=== PATIENT | male | born 1955 | race American Indian/Alaskan Native ===

== ENCOUNTER 2016-11-10 08:45 | Emergency (ER) | payer OTHER ==
[2016-11-10] MEDS ORDERED: KETOROLAC 60 MG/2 ML VIAL IVP STA (09:05)
[2016-11-10] MEDS ORDERED: DEXAMETHASONE 10 MG/ML VIAL IVP STA (09:05)
--- NOTE | 2016-11-10 09:10 | ED Physician Documentation ---
PD HPI DYSPNEA - Stated complaint Stated Complaint: SOA - Chief complaint Chief Complaint: Critical Care - History obtained from History obtained from: Patient, Family - History of Present Illness Timing - onset: Yesterday (afternoon) Timing - onset during: Rest Timing - duration: Days (1) Timing - details: Gradual onset, Still present Inciting event(s): URI Improved by: Rest Worsened by: Exertion, Coughing, Other (inspiration) Associated symptoms: Cough, Chest pain / discomfort Similar symptoms before: Has not had sx before Recently seen: Not recently seen - Additional information Additional information: 61-year-old previously healthy male has been working at [employer] 7 days a week 10 hours a day for the past 6 years. He last had 2 days in a row off 2 years ago. Yesterday afternoon after work he developed a cough and pain in the left side of his chest. He has developed some dyspnea overnight and has been extremely uncomfortable. He is not able to take a deep breath or move particularly well. Review of Systems Constitutional: reports: Myalgias, Fatigue. denies: Fever Eyes: denies: Decreased vision Ears: denies: Ear pain Nose: reports: Congestion. denies: Rhinorrhea / runny nose Throat: denies: Sore throat Cardiac: reports: Chest pain / pressure. denies: Palpitations Respiratory: reports: Dyspnea, Cough GI: reports: Nausea, Vomiting. denies: Abdominal Pain : denies: Dysuria, Frequency Skin: denies: Rash Musculoskeletal: reports: Back pain. denies: Neck pain Neurologic: reports: Generalized weakness. denies: Focal weakness, Numbness PD PAST MEDICAL HISTORY - Present Medications Home Medications: Ambulatory Orders Medication Instructions Recorded Confirmed Levofloxacin [Levaquin] 750 mg PO DAILY #10 tablet 11/10/16 traMADol [Ultram] 50 - 100 mg PO ONCE PRN #20 tablet 11/10/16 - Allergies Allergies/Adverse Reactions: Allergies Allergy/AdvReac Type Severity Reaction Status Date / Time No Known Drug Allergies Allergy Verified 11/10/16 08:55 PD ED PE NORMAL - Vitals Vital signs reviewed: Yes (Tachycardic tachypneic and hypertensive) - General General: Well developed/nourished, Other (61 y/o male staning at the bedside winching each time he breaths with his head tilted down as this is more comfortable. ) - HEENT HEENT: Atraumatic, PERRL, EOMI, Ears normal, Pharynx benign, Other (dry mucous membranes) - Neck Neck: Supple, no meningeal sign, No bony TTP - Cardiac Cardiac: No murmur, Other (tachy ) - Respiratory Respiratory: Other (tachypneic with diminished breath sounds in the right base. ) - Abdomen Abdomen: Soft, Non tender - Back Back: No CVA TTP, No spinal TTP - Derm Derm: Normal color, Warm and dry, No rash - Extremities Extremities: No deformity, No edema - Neuro Neuro: No motor deficit, No sensory deficit - Psych Psych: Normal mood, Normal affect Results - Vitals Vitals: Vital Signs - 24 hr 11/10/16 11/10/16 11/10/16 08:52 09:56 11:47 Temperature 37.3 C Heart Rate 105 H 87 81 Respiratory 25 H 15 Rate Blood Pressure 148/90 H 119/68 107/74 O2 Saturation 95 96 98 Oxygen O2 Source Room air - Labs Labs: Laboratory Tests 11/10/16 11/10/16 11/10/16 09:00 09:00 09:00 WBC 8.9 RBC 4.13 L Hgb 15.3 Hct 43.1 MCV 104.4 H MCH 36.9 H MCHC 35.4 RDW 14.0 Plt Count 73 L MPV 8.8 Neut # 7.8 H Lymph # 0.7 L [place] # 0.4 Eos # 0.0 Baso # 0.0 Absolute Nucleated RBC 0.00 Nucleated RBCs 0.0 Sodium 129 L Potassium 3.8 Chloride 94 L Carbon Dioxide 24 Anion Gap 11.0 BUN 15 Creatinine 1.0 Estimated GFR (MDRD) 75 L Glucose 173 H Calcium 8.9 Total Bilirubin 2.5 H AST 194 H ALT 186 H Alkaline Phosphatase 81 Troponin I < 0.04 Total Protein 8.2 Albumin 3.8 Globulin 4.4 H Albumin/Globulin Ratio 0.9 L Lipase 23 PD MEDICAL DECISION MAKING - ED course Complexity details: reviewed results, re-evaluated patient, considered differential, d/w patient, d/w family ED course: 61-year-old male with essentially no past medical history has developed a cough and left sided chest pain with inspiration. He has significant pain and looks quite uncomfortable. An IV is begun he is given dexamethasone and Toradol. Chest x-ray is obtained. The chest x-ray demonstrates a discrete left lower lobe infiltrate and the patient has relief of his pain with use of the IV Toradol and dexamethasone. On his blood work his liver functions are elevated and he does have a past history of hepatitis C and apparently took medication cured this and continues to drink about 4 beers per day. His picture is consistent with some cholestasis with a elevation of his bilirubin therefore we will use Levaquin instead of Zithromax as this is contraindicated with cholestasis. Departure - Departure Disposition: 01 Home, Self Care Clinical Impression: Elevated liver function tests Pneumonia Qualifiers: Pneumonia type: due to unspecified organism Laterality: left Lung location: lower lobe of lung Qualified Code(s): J18.1 - Lobar pneumonia, unspecified organism Condition: Stable Instructions: ED Pneumonia Adult Follow-Up: Jigar Hernandes MD [Primary Care Provider] - Prescriptions: Levofloxacin [Levaquin] 750 mg PO DAILY #10 tablet traMADol [Ultram] 50 - 100 mg PO ONCE PRN #20 tablet PRN Reason: Pain Comments: Today it appears you have a left lower lobe pneumonia on her chest x-ray. In addition you do have elevation of your liver function test and we are recommending you discontinue the use of alcohol and not use acetaminophen now.Follow-up with Dr. Hernandes regarding retesting your liver functions after you have stopped drinking. Forms: Activity restrictions
[2016-11-10] MEDS ORDERED: KETOROLAC 30 MG/ML VIAL ONE (09:14)
[2016-11-10] MEDS ORDERED: DEXAMETHASONE 10 MG/ML VIAL ONE (09:14)
[2016-11-10 09:33] LABS: BASOPHILS % (AUTO) 0.2 %; HCT - HEMATOCRIT 43.1 % (42.0-52.0); HGB - HEMOGLOBIN 15.3 g/dL (14.0-18.0); LYMPHOCYTES # (AUTO) 0.7 10^3/uL (1.5-3.5); LYMPHOCYTES % (AUTO) 7.8 %; MEAN CORPUSCULAR HEMOGLOBIN 36.9 pg (27.0-31.0); MEAN CORPUSCULAR HGB CONC 35.4 g/dL (32.0-36.0); MEAN CORPUSCULAR VOLUME 104.4 fL (80.0-94.0); MEAN PLATELET VOLUME 8.8 fL (7.4-11.4); MONOCYTES # (AUTO) 0.4 10^3/uL (0.0-1.0); NEUTROPHILS # (AUTO) 7.8 10^3/uL (1.5-6.6); RED BLOOD COUNT 4.13 10^6/uL (4.70-6.10); UNCORRECTED WHITE BLOOD COUNT 8.9 x10^3/uL; WHITE BLOOD COUNT 8.9 x10^3/uL (4.8-10.8)
[2016-11-10 09:47] LABS: ALBUMIN/GLOBULIN RATIO 0.9 (1.0-2.2); BILIRUBIN,TOTAL 2.5 mg/dL (0.2-1.0); CALCIUM 8.9 mg/dL (8.5-10.3); POTASSIUM 3.8 mmol/L (3.5-5.0); TOTAL PROTEIN 8.2 g/dL (6.7-8.2)
[2016-11-10] MEDS ORDERED: cefTRIAXone 1 GM in SODIUM CHLORIDE 0.9% MINIBAG 100 ML IV STA (10:15)
[2016-11-10] MEDS ORDERED: cefTRIAXone 1 GM VIAL ONE (10:25)
--- NOTE | 2016-11-10 10:49 | XRAY Report ---
EXAM: CHEST RADIOGRAPHY EXAM DATE: 11/10/2016 09:09 AM. CLINICAL HISTORY: Cough and left-sided chest pain. COMPARISON: None. TECHNIQUE: 2 views. FINDINGS: Lungs/Pleura: Left lower lobe pulmonary infiltrate and consolidation. Left upper chest and right ches t appear clear. Mediastinum: Heart and mediastinal contours are unremarkable. Other: None. IMPRESSION: Left lower lobe pneumonia. [facility] Referring Provider Line: [phone] SITE ID: [id number]
[2016-11-10] MEDS ORDERED: traMADol 50 MG TABLET PO STA (12:35)
[2016-11-10] MEDS ORDERED: traMADol 50 MG TABLET PO ONE (12:42)
[2016-11-10 12:50] VITALS: BP 104/68
== END 2016-11-10 12:49 | disposition home or self-care (01) ==
LOC: ED 08:45
DX: R79.89 Other specified abnormal findings of blood chemistry (principal); J18.9 Pneumonia, unspecified organism; Z86.19 Personal history of other infectious and parasitic diseases; Z72.89 Other problems related to lifestyle
CPT/HCPCS: 36415; 71020; 80053; 83690; 84484; 85025; 87040; 96365; 96375; 99284; A9270

== ENCOUNTER 2016-11-15 23:42 | Inpatient (IN) | payer OTHER ==
[2016-11-16] MEDS ORDERED: SODIUM CHLORIDE 0.9% 1,000 ML IV ONE ×2 (00:45→23:12)
[2016-11-16] MEDS ORDERED: KETOROLAC 60 MG/2 ML VIAL IVP STA (00:45)
[2016-11-16] MEDS ORDERED: IPRATROPIUM/ALBUTEROL 3 ML NEB INH STA (00:45)
[2016-11-16 01:06] LABS: BASOPHILS # (AUTO) 0.1 10^3/uL (0.0-0.1); EOSINOPHILS % (AUTO) 0.3 %; HCT - HEMATOCRIT 44.7 % (42.0-52.0); HGB - HEMOGLOBIN 15.6 g/dL (14.0-18.0); LYMPHOCYTES # (AUTO) 0.9 10^3/uL (1.5-3.5); LYMPHOCYTES % (AUTO) 9.9 %; MEAN CORPUSCULAR HEMOGLOBIN 36.4 pg (27.0-31.0); MEAN CORPUSCULAR HGB CONC 34.9 g/dL (32.0-36.0); MEAN CORPUSCULAR VOLUME 104.3 fL (80.0-94.0); MEAN PLATELET VOLUME 7.9 fL (7.4-11.4); MONOCYTES # (AUTO) 1.2 10^3/uL (0.0-1.0); MONOCYTES % (AUTO) 12.9 %; NEUTROPHILS # (AUTO) 7.2 10^3/uL (1.5-6.6); NEUTROPHILS % (AUTO) 75.9 %; RED BLOOD COUNT 4.29 10^6/uL (4.70-6.10); RED CELL DISTRIBUTION WIDTH 13.9 % (12.0-15.0); UNCORRECTED WHITE BLOOD COUNT 9.5 x10^3/uL; WHITE BLOOD COUNT 9.5 x10^3/uL (4.8-10.8)
[2016-11-16] MEDS ORDERED: KETOROLAC 30 MG/ML VIAL ONE (01:07)
--- NOTE | 2016-11-16 01:07 | XRAY Preliminary Report ---
Exam: XR Chest 2 View PA/LAT IMPRESSION: Improving left lower lobe pneumonia with increasing small left pleural effusion. Rounded left perihilar well circumscribed density appears posteriorly on the lateral view and may be some loc ulated fluid within the pleural space versus partial lobar collapse. Posttreatment follow-up suggeste d to ensure clearance. [facility] SITE ID: [id number]
--- NOTE | 2016-11-16 01:10 | XRAY Report ---
EXAM: CHEST RADIOGRAPHY EXAM DATE: 11/16/2016 12:45 AM. CLINICAL HISTORY: Short of breath COMPARISON: 11/10/2016. TECHNIQUE: 2 views. FINDINGS: Lungs/Pleura: Improving left lower lobe pneumonia with increasing small left pleural effusion. Rounde d left perihilar well circumscribed density appears posteriorly on the lateral view and may be some l oculated fluid within the pleural space versus partial lobar collapse. Suspect trace right pleural ef fusion. No gross pneumothorax. Mediastinum: Heart size remains normal. No mediastinal shift. Other: None. IMPRESSION: Improving left lower lobe pneumonia with increasing small left pleural effusion. Rounded left perihilar well circumscribed density appears posteriorly on the lateral view and may be some loc ulated fluid within the pleural space versus partial lobar collapse. Posttreatment follow-up suggeste d to ensure clearance. [facility] Referring Provider Line: [phone] SITE ID: [id number]
[2016-11-16] MEDS ORDERED: IPRATROPIUM/ALBUTEROL 3 ML NEB INH ONE (01:16)
[2016-11-16 01:19] LABS: ALBUMIN/GLOBULIN RATIO 0.7 (1.0-2.2); BILIRUBIN,TOTAL 3.9 mg/dL (0.2-1.0); CALCIUM 8.5 mg/dL (8.5-10.3); CREATININE 0.9 mg/dL (0.6-1.2); POTASSIUM 3.6 mmol/L (3.5-5.0); TOTAL PROTEIN 7.8 g/dL (6.7-8.2)
[2016-11-16] MEDS ORDERED: PROCHLORPERAZINE 10 MG/2 ML VIAL IVP PRN (01:41)
[2016-11-16] MEDS ORDERED: ACETAMINOPHEN 325 MG TABLET PO PRN (01:41)
[2016-11-16] MEDS ORDERED: ONDANSETRON 4 MG/2 ML VIAL IVP PRN (01:41)
[2016-11-16] MEDS ORDERED: ZOLPIDEM 5 MG TABLET PO PRN (01:41)
[2016-11-16] MEDS ORDERED: IPRATROPIUM/ALBUTEROL 3 ML NEB INH PRN (01:41)
[2016-11-16] MEDS ORDERED: VANCOMYCIN PER PHARMACY 0.1 GM in SODIUM CHLORIDE 0.9% 250 ML IV SCH (02:00)
--- NOTE | 2016-11-16 02:03 | ED Physician Documentation ---
PD HPI DYSPNEA - Stated complaint Stated Complaint: SOA - Chief complaint Chief Complaint: Resp - History obtained from History obtained from: Patient, Family - History of Present Illness Timing - onset: How many weeks ago (1) Timing - onset during: Rest Timing - duration: Weeks (1) Timing - details: Gradual onset, Still present Inciting event(s): URI Improved by: Rest Worsened by: Exertion, Coughing Associated symptoms: Cough, Chest pain / discomfort Similar symptoms before: Diagnosis (pneumonia) Recently seen: Emergency Dept (6 days ago) - Additional information Additional information: 61-year-old male was seen in the emergency department 6 days ago with acute left sided chest pain cough and dyspnea. He had a discrete infiltrate on his chest x-ray and was administered Rocephin IM, decadron and placed on a course of azithromycin. He did not have improvement in his symptoms and today has worse chest pain and pain with inspiration. Review of Systems Constitutional: reports: Myalgias, Fatigue, Weight Loss, Sweats. denies: Fever Eyes: denies: Decreased vision Ears: denies: Ear pain Nose: denies: Congestion Throat: denies: Sore throat Cardiac: reports: Chest pain / pressure. denies: Palpitations Respiratory: reports: Dyspnea, Cough GI: denies: Abdominal Pain, Nausea, Vomiting : denies: Dysuria, Frequency PD PAST MEDICAL HISTORY - Past Medical History Past Medical History: Yes Respiratory: Pneumonia - Past Surgical History Past Surgical History: Yes - Present Medications Home Medications: Ambulatory Orders Medication Instructions Recorded Confirmed Levofloxacin [Levaquin] 750 mg PO DAILY #10 tablet 11/10/16 traMADol [Ultram] 50 - 100 mg PO ONCE PRN #20 tablet 11/10/16 - Allergies Allergies/Adverse Reactions: Allergies Allergy/AdvReac Type Severity Reaction Status Date / Time No Known Drug Allergies Allergy Verified 11/10/16 08:55 - Social History Does the pt smoke?: No Smoking Status: Never smoker Does the pt drink ETOH?: Yes Does the pt have substance abuse?: No - Immunizations Immunizations: TDAP >10years/unknown - POLST Patient has POLST: No PD ED PE NORMAL - Vitals Vital signs reviewed: Yes (normal ) - General General: Alert and oriented X 3, Well developed/nourished, Other (Thin appearing male is winching with each breath and appears uncomfortable. ) - HEENT HEENT: Atraumatic, PERRL - Neck Neck: Supple, no meningeal sign - Cardiac Cardiac: RRR, No murmur - Respiratory Respiratory: No respiratory distress, Other (Diminished breath sounds with light rhonchi on the left) - Abdomen Abdomen: Soft, Non tender - Back Back: No CVA TTP, No spinal TTP - Derm Derm: Normal color, Warm and dry, No rash - Extremities Extremities: No deformity, No edema - Neuro Neuro: No motor deficit, No sensory deficit - Psych Psych: Normal mood, Normal affect Results - Vitals Vitals: Vital Signs - 24 hr 11/15/16 11/16/16 23:52 01:18 Temperature 36.6 C Heart Rate 80 77 Respiratory 19 20 Rate Blood Pressure 111/77 O2 Saturation 97 Oxygen O2 Source Room air - Labs Labs: Laboratory Tests 11/16/16 11/16/16 11/16/16 00:50 00:50 00:50 WBC 9.5 RBC 4.29 L Hgb 15.6 Hct 44.7 MCV 104.3 H MCH 36.4 H MCHC 34.9 RDW 13.9 Plt Count 103 L MPV 7.9 Neut # 7.2 H Lymph # 0.9 L [place] # 1.2 H Eos # 0.0 Baso # 0.1 Absolute Nucleated RBC 0.00 Nucleated RBCs 0.0 Sodium 131 L Potassium 3.6 Chloride 95 L Carbon Dioxide 27 Anion Gap 9.0 BUN 16 Creatinine 0.9 Estimated GFR (MDRD) 85 L Glucose 121 H Calcium 8.5 Total Bilirubin 3.9 H AST 104 H ALT 75 H Alkaline Phosphatase 88 Troponin I < 0.04 Total Protein 7.8 Albumin 3.1 L Globulin 4.7 H Albumin/Globulin Ratio 0.7 L Lipase 65 H - Rads (name of study) 2 view chest Radiology: Prelim report reviewed (Impression: Improving left lower lobe pneumonia with increasing small left pleural effusion. Rounded left perihilar well-circumscribed density appears posteriorly on the lateral view and may be some loculated fluid within the pleural space versus a partial lobar collapse posttreatment follow-up suggested to ensure clearance.), EMP read indepedently, See rad report PD MEDICAL DECISION MAKING - ED course Complexity details: reviewed old records, reviewed results, re-evaluated patient , considered differential, d/w patient, d/w family ED course: 61-year-old male with a recent pneumonia treated as an outpatient appears to have failed outpatient treatment. He does have some abnormalities to his chest x-ray which will require further evaluation. Dr. Rosa is consulted in the case and graciously agrees to care for the patient in the hospital. Departure - Departure Disposition: 64 [facility] DC/Xfer Clinical Impression: Elevated liver function tests Pneumonia Qualifiers: Pneumonia type: due to unspecified organism Laterality: left Lung location: lower lobe of lung Qualified Code(s): J18.1 - Lobar pneumonia, unspecified organism Condition: Stable Discharge Date/Time: 11/16/16 02:30
[2016-11-16] MEDS ORDERED: IOPAMIDOL-300 100 ML VIAL IVP ONE (02:31)
--- NOTE | 2016-11-16 02:59 | CT Preliminary Report ---
Exam: CT Chest Angio (PE) IMPRESSION: Chest: 1. No pulmonary emboli. 2. Small left lower lobe pneumonia. 3. Small loculated left pleural effusion with pleural enhancement, worrisome for empyema. 4. Coronary calcifications. Abdomen/pelvis: 1. No acute inflammatory or obstructive process seen in the abdomen or pelvis. 2. 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 3. Cirrhosis and portal hypertension. 4. Colonic diverticulosis. [facility] SITE ID: [id number]
--- NOTE | 2016-11-16 02:59 | CT Preliminary Report ---
Exam: CT Abdomen/Pelvis W/ IMPRESSION: Chest: 1. No pulmonary emboli. 2. Small left lower lobe pneumonia. 3. Small loculated left pleural effusion with pleural enhancement, worrisome for empyema. 4. Coronary calcifications. Abdomen/pelvis: 1. No acute inflammatory or obstructive process seen in the abdomen or pelvis. 2. 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 3. Cirrhosis and portal hypertension. 4. Colonic diverticulosis. [facility] SITE ID: [id number]
[2016-11-16] MEDS ORDERED: VANCOMYCIN INJ 1 GM in SODIUM CHLORIDE 0.9% 250 ML IV SCH (03:00)
[2016-11-16] MEDS: oxyCODONE 5 MG TABLET PO PRN ×5 (03:03→22:31)
[2016-11-16] MEDS: SODIUM CHLORIDE FLUSH 0.9% 10 ML SYRINGE IVP PRN (03:03)
[2016-11-16] MEDS: SODIUM CHLORIDE 0.9% 1,000 ML IV SCH ×3 (03:03→23:13)
[2016-11-16] MEDS: CEFEPIME 2 GM in SODIUM CHLORIDE 0.9% MINIBAG 100 ML IV SCH ×3 (03:04→20:55)
--- NOTE | 2016-11-16 03:05 | CT Report ---
EXAM: CT ANGIOGRAM CHEST CT ABDOMEN AND PELVIS WITH IV CONTRAST CLINICAL HISTORY: Short of breath, pneumonia, abnormal chest x-ray, upper abdominal pain, elevated bi lirubin, history of hepatitis C. COMPARISON: Chest x-ray same day. TECHNIQUE: Routine helical imaging was performed through the chest in the pulmonary arterial phase. I V Contrast: Yes. Reconstructions: Coronal 3-D MIP reconstructions.Sagittal and coronal. With the ronni e contrast bolus, the patient was scanned through the abdomen and pelvis in the portal venous phase. In accordance with CT protocol optimization, one or more of the following dose reduction techniques w ere utilized for this exam: automated exposure control, adjustment of mA and/or KV based on patient s ize, or use of iterative reconstructive technique. FINDINGS: Pulmonary Arteries: Technically adequate for evaluation through the segmental arteries. No evidence f or acute or chronic pulmonary emboli. Lungs/Pleura: Multiloculated small left pleural effusion with pleural enhancement, worrisome for empy shirley. Left lower lobe medial consolidation, consistent with pneumonia. Additional mild left lower lobe atelectasis adjacent to the effusion. Lungs are otherwise clear. Mediastinum: No acute aortic syndrome. Coronary calcifications. No cardiac enlargement. No adenopath y. Abdominal organs: Cirrhotic morphology to the liver without focal mass seen. Gallbladder, pancreas, a drenals, kidneys, and spleen appear unremarkable. No biliary ductal dilatation seen. Bowel/peritoneal cavity: Evidence of congenital bowel malrotation. Post gastric surgery. No bowel obs truction or inflammatory process seen. Colonic diverticulosis. No free air or fluid. Pelvic organs: Bladder and visualized reproductive organs appear unremarkable. Other: Upper abdominal collateral vessels.. IMPRESSION: Chest: 1. No pulmonary emboli. 2. Small left lower lobe pneumonia. 3. Small loculated left pleural effusion with pleural enhancement, worrisome for empyema. 4. Coronary calcifications. Abdomen/pelvis: 1. No acute inflammatory or obstructive process seen in the abdomen or pelvis. 2. 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 3. Cirrhosis and portal hypertension. 4. Colonic diverticulosis. [facility] Referring Provider Line: [phone] SITE ID: [id number]
--- NOTE | 2016-11-16 03:18 | HISTORY & PHYSICAL EXAMINATION ---
Chief Complaint - Chief Complaint Chief Complaint: Shortness of air History of Present Illness - Admitted From Admitted From:: Emergency department - History Obtained From Records Reviewed: Yes History obtained from: Patient Exam Limitations: None - History of Present Illness HPI Comment/Other: Patient is a very pleasant 61-year-old gentleman with a past medical history significant for hepatitis C for which patient states he received treatment several years ago, skin cancer status post removal and history of a GI tumor that was removed and patient was told it was benign who presented to the emergency department with a chief complaint of shortness of air. The patient states that he was in his normal state of health until 1 week ago when on out of nowhere he began developing severe shortness of air. The patient states that his shortness of air was so bad that he was unable to go to work that day and came into the emergency department the following day. He states by the next day he had developed cough and continued shortness of air. The patient denies having had any fevers but states that he was having chills and night sweats at home. The patient states that he was given IV antibiotics in the emergency department and then discharged home with Levaquin orally. The patient states that he has been taking his antibiotics for the last week and has not felt any improvement in his symptoms. He states in fact that his symptoms have become worse. The patient states that he is having increasing pleuritic chest pain. He also states that he has had increasing cough with hemoptysis. The patient also states that he has been feeling increasingly fatigued and has had no appetite for the last week. The patient states that he has been unable to get sleep due to the severity of his pain. He states he cannot take a deep breath without having severe pain in his chest. The patient states he is also been having nosebleeds. The patient admits to a 50 pound weight loss over the last year however he states that this is intentional as he has been exercising and trying to lose weight. Before this week the patient had not noticed any decrease in his exercise tolerance. The patient states that he is now unable to do any of his normal daily exercises due to the severe shortness of air that he is experiencing. The patient denies having been around any sick contacts, he denies any recent travel. The patient otherwise denies any headaches, blurred vision, sore throat , abdominal pain, nausea, vomiting, diarrhea, constipation, urinary urgency, urinary frequency, dysuria, back pain, neck stiffness, joint pain, joint swelling, muscle aches, polyuria, dry skin, hair loss or any focal neurologic deficits. On presentation to the emergency department the patient was afebrile and vital signs were within normal limits. The patient was not hypoxic on presentation however he did appear to be ill appearing. The patient was diaphoretic and was in a significant amount of distress secondary to severe pleuritic chest pain. The patient's lab tests revealed a mild hyponatremia and an elevated bilirubin of 3.9 with elevated AST and ALT. The patient did not have any leukocytosis he did have thrombocytopenia. The patient's chest x-ray showed a improving left lower lobe pneumonia with increasing small left pleural effusion as well as a rounded left perihilar, well-circumscribed density which appeared posteriorly on the lateral view and may be some loculated fluid within the pleural space versus partial lobar collapse. The patient also underwent a CT Angio of his chest as well as his abdomen and pelvis which revealed no pulmonary emboli, small left lower lobe pneumonia and small loculated left pleural effusion with pleural enhancement worrisome for empyema. The patient's CT abdomen did show cirrhosis and portal hypertension. The patient was admitted for pneumonia with likely empyema. History - Past Medical History Cardiovascular: reports: None Respiratory: reports: Pneumonia Neuro: reports: None Endocrine/Autoimmune: reports: None GI: reports: Hepatitis (Hepatitis C status post treatment), Other (GI tumor status post resection) : reports: None HEENT: reports: None Psych: reports: None Musculoskeletal: reports: None Derm: reports: Other (Skin cancer status post treatment) MRSA Hx?: No Other Past Medical History: Pt reports occassional rashes but doesn't remember what the rashes have been called. - Family & Social History Family History: Mother: , Cancer (Mom had metastatic cancer and at the age of 54. Patient's brother also had metastatic cancer and last year. ), Diabetes, Type 2, Brother: Cancer Living arrangement: At home Living Situation: With spouse/s.o. Social History Notes: The patient is originally from [place] and now lives in [place] with his and his daughter who just came back from deployment in [place]. The patient works at [employer] 7 days a week and has been doing so for over 5 years. The patient has 4 children. He has never been a smoker, he does drink 3-4 beers a day and denies any illicit drug use. - Substance History Use: Uses substance without health or social issues: NONE Abuse: Recurrent use of substance despite neg consequences: NONE Dependence: Experiences withdrawal or developed tolerances: NONE - POLST Patient has POLST: No POLST Status: Full Code Meds/Allgy - Home Medications Home Medications: Ambulatory Orders Medication Instructions Recorded Confirmed Levofloxacin [Levaquin] 750 mg PO DAILY #10 tablet 11/10/16 traMADol [Ultram] 50 - 100 mg PO ONCE PRN #20 tablet 11/10/16 - Allergies Allergies/Adverse Reactions: Allergies Allergy/AdvReac Type Severity Reaction Status Date / Time No Known Drug Allergies Allergy Verified 11/10/16 08:55 Review of Systems - Other Findings Other Findings: A comprehensive review of systems was performed the pertinent positives and negatives are stated above in the HPI the remainder of the review of systems is negative. Exam - Vital Signs Reviewed Vital Signs: Yes Vital Signs: Vital Signs x48h Temp Pulse Pulse Resp BP BP Pulse Ox 11/16/16 02:55 36.7 C 69 18 101/58 L 95 11/16/16 01:54 74 18 108/77 98 - Physical Exam General Appearance: positive: Alert, Moderate distress (Patient appears ill, grimacing in pain with every deep breath.), Anxious, Other (Very Thin) Eyes Bilateral: positive: Normal inspection, PERRL, EOMI, No lid inflammation, Conjunctivae nml, No scleral icterus ENT: positive: ENT inspection nml, Pharynx nml, Dry mucous membranes. negative : Purulent nasal drainage, Pharyngeal erythema, Oral lesions Neck: positive: Nml inspection, Thyroid nml, No JVD, Trachea midline. negative : Thyromegaly, Lymphadenopathy (R), Lymphadenopathy (L), Carotid bruit, Tracheal deviation Respiratory: positive: Chest non-tender, No respiratory distress, Rhonchi (Left lower lobe). negative: Wheezes, Rales Cardiovascular: positive: Regular rate & rhythm, No murmur, No gallop Peripheral Pulses: positive: 2+ Abdomen: positive: No organomegaly, Nml bowel sounds, No distention, Tenderness (Left upper quadrant tenderness, mild, no guarding or rebound, no peritoneal signs). negative: Guarding, Rebound, Hepatomegaly, Splenomegaly Back: positive: Nml inspection. negative: CVA tenderness (R), CVA tenderness (L ) Skin: positive: Color nml, No rash, Warm, Dry. negative: Cyanosis, Pallor Extremities: positive: Non-tender, Full ROM, Nml appearance, No pedal edema Neurologic/Psychiatric: positive: Oriented x3, CN's nml (2-12), Motor nml, Sensation nml, Mood/affect nml Conclusion/Plan - Problem List (1) CAP (community acquired pneumonia) Conclusion/Plan: The patient has a left lower lobe pneumonia that was diagnosed 1 week ago. The patient has been treated with Levaquin for 7 days but has not had improvement in symptoms. On x-ray and CT the patient's left lower lobe pneumonia appears to be improving. The patient however continues to have increasing shortness of air, cough, severe pleuritic chest pain and generalized fatigue. Although the patient's pneumonia appears to be improving on the chest x-ray it appears the patient may be developing a loculated effusion likely empyema. Plan: Admit to the hospital for IV antibiotics with cefepime and vancomycin for broad spectrum coverage given the patient has not responded to Levaquin at home. Speak with surgery about possible drainage of pleural effusion and empyema if surgery is not comfortable with doing this procedure here patient may need to be transferred to a larger center for thoracentesis and drainage of empyema. Oxygen as needed Pain control Cough suppressant Qualifiers: Laterality: left (2) Empyema lung Conclusion/Plan: Patient finding of left lower lobe pneumonia 1 week ago and was treated with Levaquin at home however did not have improvement in symptoms therefore return to the emergency department. Patient's x-ray shows improving left lower lobe pneumonia but he now appears to have a small loculated left pleural effusion with pleural enhancement worrisome for empyema. Plan: Speak with surgery regarding possible chest tube placement versus thoracentesis versus transfer to a larger Medical Center for treatment of empyema. Give broad-spectrum IV antibiotics with cefepime and vancomycin Monitor closely for hemodynamic instability. (3) Liver cirrhosis Conclusion/Plan: Patient had elevated bilirubin, AST and ALT on presentation. Patient has a history of hepatitis C but states it was treated in the past. The patient does admit to drinking daily for beers for many years. On CT abdomen pelvis patient appears to have cirrhosis with portal hypertension. Plan: Monitor CMP, INR and platelet count. Patient will need follow-up with his primary care physician for further workup for cirrhosis. The patient will need an EGD to look for esophageal varices and may eventually need to be started on medications for ascites and hepatic encephalopathy if patient develops these complications. Patient will need referral to hepatology as an outpatient Patient counseled on need to quit drinking. We will check hepatitis panel. (4) Alcohol abuse Conclusion/Plan: Patient states he drinks 4 beers a day. Given his history of hepatitis C and now new onset cirrhosis. Patient was advised to quit drinking and patient was placed on alcohol withdrawal protocol while he is hospitalized. Patient will be given thiamine, multivitamin and folic acid. We will check patient's folate and B12 levels. - Lab Results Lab results reviewed: Yes Fish Bones: 11/16/16 00:50 11/16/16 00:50 Other Lab Results: Laboratory Results WBC 9.5 x10^3/uL (4.8-10.8) 11/16/16 00:50 RBC 4.29 10^6/uL (4.70-6.10) L 11/16/16 00:50 Hgb 15.6 g/dL (14.0-18.0) 11/16/16 00:50 Hct 44.7 % (42.0-52.0) 11/16/16 00:50 MCV 104.3 fL (80.0-94.0) H 11/16/16 00:50 MCH 36.4 pg (27.0-31.0) H 11/16/16 00:50 MCHC 34.9 g/dL (32.0-36.0) 11/16/16 00:50 RDW 13.9 % (12.0-15.0) 11/16/16 00:50 Plt Count 103 10^3/uL (130-450) L 11/16/16 00:50 MPV 7.9 fL (7.4-11.4) 11/16/16 00:50 Neut # 7.2 10^3/uL (1.5-6.6) H 11/16/16 00:50 Lymph # 0.9 10^3/uL (1.5-3.5) L 11/16/16 00:50 Bureau # 1.2 10^3/uL (0.0-1.0) H 11/16/16 00:50 Eos # 0.0 10^3/uL (0.0-0.7) 11/16/16 00:50 Baso # 0.1 10^3/uL (0.0-0.1) 11/16/16 00:50 Absolute Nucleated RBC 0.00 x10^3/uL 11/16/16 00:50 Nucleated RBCs 0.0 /100WBC 11/16/16 00:50 Sodium 131 mmol/L (135-145) L 11/16/16 00:50 Potassium 3.6 mmol/L (3.5-5.0) 11/16/16 00:50 Chloride 95 mmol/L (101-111) L 11/16/16 00:50 Carbon Dioxide 27 mmol/L (21-32) 11/16/16 00:50 Anion Gap 9.0 (6-13) 11/16/16 00:50 BUN 16 mg/dL (6-20) 11/16/16 00:50 Creatinine 0.9 mg/dL (0.6-1.2) 11/16/16 00:50 Estimated GFR (MDRD) 85 (>89) L 11/16/16 00:50 Glucose 121 mg/dL (70-100) H 11/16/16 00:50 Calcium 8.5 mg/dL (8.5-10.3) 11/16/16 00:50 Total Bilirubin 3.9 mg/dL (0.2-1.0) H 11/16/16 00:50 AST 104 IU/L (10-42) H 11/16/16 00:50 ALT 75 IU/L (10-60) H 11/16/16 00:50 Alkaline Phosphatase 88 IU/L (42-121) 11/16/16 00:50 Troponin I < 0.04 ng/mL (<0.49) 11/16/16 00:50 Total Protein 7.8 g/dL (6.7-8.2) 11/16/16 00:50 Albumin 3.1 g/dL (3.2-5.5) L 11/16/16 00:50 Globulin 4.7 g/dL (2.1-4.2) H 11/16/16 00:50 Albumin/Globulin Ratio 0.7 (1.0-2.2) L 11/16/16 00:50 Lipase 65 U/L (22-51) H 11/16/16 00:50 - Diagnostic Imaging Results Diagnostic Imaging Results: positive: Final report reviewed Diagnostic Imaging Results Comments: CT angiogram chest Impression: 1. No pulmonary emboli. 2. Small left lower lobe pneumonia. 3. Small loculated left pleural effusion with pleural enhancement, worrisome for empyema. 4. Coronary calcifications. CT abdomen/pelvis Impression: 1. No acute inflammatory or obstructive process seen in the abdomen or pelvis. 2. 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 3. Cirrhosis and portal hypertension. 4. Colonic diverticulosis. Issues/Core Measures - Anticipated LOS Anticipated Stay Length: 2 or more midnights - DVT/VTE - Prophylaxis VTE/DVT Prophylaxis med ordered at admit?: Yes
[2016-11-16] MEDS ORDERED: LORazepam 0.5 MG TABLET PO PRN (03:26)
[2016-11-16] MEDS ORDERED: guaiFENesin/CODEINE 5 ML UDC PO PRN (03:31)
[2016-11-16 06:18] LABS: BASOPHILS % (AUTO) 0.3 %; EOSINOPHILS % (AUTO) 0.5 %; HCT - HEMATOCRIT 35.8 % (42.0-52.0); HGB - HEMOGLOBIN 12.4 g/dL (14.0-18.0); LYMPHOCYTES % (AUTO) 14.9 %; MEAN CORPUSCULAR HEMOGLOBIN 36.5 pg (27.0-31.0); MEAN CORPUSCULAR HGB CONC 34.7 g/dL (32.0-36.0); MEAN CORPUSCULAR VOLUME 105.3 fL (80.0-94.0); MONOCYTES # (AUTO) 0.9 10^3/uL (0.0-1.0); MONOCYTES % (AUTO) 13.3 %; NEUTROPHILS # (AUTO) 4.8 10^3/uL (1.5-6.6); RED CELL DISTRIBUTION WIDTH 13.7 % (12.0-15.0); UNCORRECTED WHITE BLOOD COUNT 6.8 x10^3/uL; WHITE BLOOD COUNT 6.8 x10^3/uL (4.8-10.8)
[2016-11-16 06:32] LABS: INR 1.4 (0.8-1.2); PT - PROTHROMBIN TIME 15.5 secs (9.9-12.6)
[2016-11-16] MEDS: PANTOPRAZOLE 40 MG TABLET PO SCH (06:37)
[2016-11-16 06:53] LABS: FOLATE 15.59 ng/mL (5.90 - >24.8)
[2016-11-16] MEDS: SODIUM CHLORIDE FLUSH 0.9% 10 ML SYRINGE IVP SCH ×3 (07:06→20:55)
[2016-11-16] MEDS ORDERED: MULTIVITAMIN 10 ML in SODIUM CHLORIDE 0.9% 1,000 ML IV SCH (09:00)
[2016-11-16] MEDS ORDERED: THIAMINE INJ 100 MG, FOLIC ACID INJ 1 MG in SODIUM CHLORIDE 0.9% 100ML 100 ML IV SCH (09:00)
[2016-11-16] MEDS: POLYETHYLENE GLYCOL 3350 17 GM PACKET PO SCH (09:13)
[2016-11-16] MEDS: THIAMINE 100 MG TABLET PO SCH (09:14)
[2016-11-16] MEDS: SACCHAROMYCES BOULARDII 250 MG CAPSULE PO SCH ×2 (09:14→16:38)
[2016-11-16] MEDS: ENOXAPARIN 40 MG/0.4 ML SYRINGE SUBQ SCH (09:21)
[2016-11-16] MEDS: PRENATAL VITAMIN TABLET PO SCH (09:21)
[2016-11-16] MEDS: VANCOMYCIN INJ 1 GM in SODIUM CHLORIDE 0.9% 250 ML IV SCH (14:21)
[2016-11-16] MEDS: MORPHINE 2 MG/ML SYRINGE IVP PRN ×3 (16:38→22:31)
[2016-11-17] MEDS: VANCOMYCIN INJ 1 GM in SODIUM CHLORIDE 0.9% 250 ML IV SCH ×3 (01:55→22:01)
[2016-11-17 05:39] LABS: ALBUMIN/GLOBULIN RATIO 0.7 (1.0-2.2); BILIRUBIN,TOTAL 2.8 mg/dL (0.2-1.0); BUN - BLOOD UREA NITROGEN 9 mg/dL (6-20); CALCIUM 7.6 mg/dL (8.5-10.3); CARBON DIOXIDE - CO2 24 mmol/L (21-32); CHLORIDE 102 mmol/L (101-111); CREATININE 0.7 mg/dL (0.6-1.2); GFR - MDRD 114 (>89); GLUCOSE 113 mg/dL (70-100); POTASSIUM 3.7 mmol/L (3.5-5.0); SODIUM 132 mmol/L (135-145); TOTAL PROTEIN 5.5 g/dL (6.7-8.2)
[2016-11-17 05:43] LABS: CALCIUM, IONIZED 1.07 mmol/L (1.15-1.33); VBG PH 7.455 (7.31-7.41)
[2016-11-17 06:10] LABS: BASOPHILS % (AUTO) 0.4 %; EOSINOPHILS % (AUTO) 0.6 %; HCT - HEMATOCRIT 36.1 % (42.0-52.0); HGB - HEMOGLOBIN 12.6 g/dL (14.0-18.0); LYMPHOCYTES # (AUTO) 0.9 10^3/uL (1.5-3.5); LYMPHOCYTES % (AUTO) 11.4 %; MEAN CORPUSCULAR HEMOGLOBIN 36.8 pg (27.0-31.0); MEAN CORPUSCULAR VOLUME 105.2 fL (80.0-94.0); MEAN PLATELET VOLUME 8.7 fL (7.4-11.4); MONOCYTES # (AUTO) 0.7 10^3/uL (0.0-1.0); MONOCYTES % (AUTO) 9.4 %; NEUTROPHILS # (AUTO) 6.1 10^3/uL (1.5-6.6); NEUTROPHILS % (AUTO) 78.2 %; NUCLEATED RED BLOOD CELLS AUTO 0.1 /100WBC; RED BLOOD COUNT 3.43 10^6/uL (4.70-6.10); RED CELL DISTRIBUTION WIDTH 13.8 % (12.0-15.0); UNCORRECTED WHITE BLOOD COUNT 7.8 x10^3/uL; WHITE BLOOD COUNT 7.8 x10^3/uL (4.8-10.8)
[2016-11-17] MEDS: PANTOPRAZOLE 40 MG TABLET PO SCH (06:29)
[2016-11-17] MEDS: SODIUM CHLORIDE FLUSH 0.9% 10 ML SYRINGE IVP SCH ×3 (07:01→20:41)
[2016-11-17] MEDS: POLYETHYLENE GLYCOL 3350 17 GM PACKET PO SCH (08:18)
[2016-11-17] MEDS: ENOXAPARIN 40 MG/0.4 ML SYRINGE SUBQ SCH (08:19)
[2016-11-17] MEDS: CEFEPIME 2 GM in SODIUM CHLORIDE 0.9% MINIBAG 100 ML IV SCH ×2 (08:19→20:41)
[2016-11-17] MEDS: THIAMINE 100 MG TABLET PO SCH (08:19)
[2016-11-17] MEDS: SACCHAROMYCES BOULARDII 250 MG CAPSULE PO SCH ×2 (08:19→17:09)
--- NOTE | 2016-11-17 08:26 | PROVIDER PROGRESS NOTE ---
Subjective - Prog Note Date Prog Note Date: 11/17/16 Prog Note Time: 08:25 - Subjective Pt reports feeling: No change Subjective: just miserable with the pleuritic pain long talk about his depression. present since teens, growing up was rough rough. gangs. made it worse. suicidal thoughts and small actions in [place] to his son. his son hasn't spoken to him in 5 yrs. Son is 100% disabled from navy and war. on drugs. so he drinks a 6 pack most days after work and works 7 days a week to cope. Current Medications - Current Medications Current Medications: Active Medications Acetaminophen (Tylenol) 650 mg PO Q4HR PRN PRN Reason: Pain 1 to 4 Albuterol/Ipratropium (Duoneb) 3 ml INH RTQID PRN PRN Reason: Wheezing Enoxaparin Sodium (Lovenox) 40 mg SUBQ DAILY [facility] Last Admin: 11/17/16 08:19 Dose: 40 mg Guaifenesin/Codeine Phosphate (Robitussin Ac) 5 ml PO Q6HR PRN PRN Reason: Cough Sodium Chloride (Normal Saline 0.9%) 1,000 mls @ 100 mls/hr IV .Q10H [facility] Last Admin: 11/16/16 23:13 Dose: 100 mls/hr Cefepime HCl 2 gm/ Sodium (Chloride) 100 mls @ 200 mls/hr IV BID [facility] Last Admin: 11/17/16 08:19 Dose: 200 mls/hr Multivitamins 10 ml/ Sodium (Chloride) 1,010 mls @ 100 mls/hr IV DAILY [facility] Last Admin: 11/16/16 09:14 Dose: 100 mls/hr Thiamine HCl 100 mg/ Folic (Acid 1 mg/ Sodium Chloride) 101.2 mls @ 50.6 mls/ hr IV DAILY [facility] Last Admin: 11/16/16 10:45 Dose: 50.6 mls/hr Vancomycin HCl 1 gm/ Sodium (Chloride) 250 mls @ 167 mls/hr IV Q12H [facility] Last Admin: 11/17/16 01:55 Dose: 167 mls/hr Lorazepam (Ativan) 1 mg PO Q1H PRN; Protocol PRN Reason: CIWA > 8 Last Admin: 11/16/16 18:25 Dose: 1 mg Morphine Sulfate (Morphine) 2 mg IVP Q2H PRN PRN Reason: Pain 8 to 10 Last Admin: 11/16/16 22:31 Dose: 2 mg Ondansetron HCl (Zofran Inj) 4 mg IVP Q6HR PRN PRN Reason: Nausea / Vomiting Oxycodone HCl (Roxicodone) 5 mg PO Q4HR PRN PRN Reason: Pain 5 to 7 Last Admin: 11/16/16 13:44 Dose: 5 mg Oxycodone HCl (Roxicodone) 10 mg PO Q4HR PRN PRN Reason: Pain 8 to 10 Last Admin: 11/16/16 22:31 Dose: 10 mg Pantoprazole Sodium (Protonix) 40 mg PO QDAC [facility] Last Admin: 11/17/16 06:29 Dose: 40 mg Polyethylene Glycol (Miralax) 17 gm PO DAILY [facility] Last Admin: 11/17/16 08:18 Dose: 17 gm Multivit/Folic Acid/Iron (Trinatal Rx 1) 1 tab PO DAILY [facility] Last Admin: 11/16/16 09:21 Dose: 1 tab Prochlorperazine Edisylate (Compazine Inj) 10 mg IVP Q6HR PRN PRN Reason: Nausea / Vomiting Saccharomyces Boulardii (Florastor) 250 mg PO BIDWM [facility] Last Admin: 11/17/16 08:19 Dose: 250 mg Sodium Chloride (Normal Saline Flush 0.9%) 10 ml IVP PRN PRN PRN Reason: NEEDED PER PROVIDER ORDERS Last Admin: 11/16/16 03:03 Dose: 10 ml Sodium Chloride (Normal Saline Flush 0.9%) 10 ml IVP Q8HR [facility] Last Admin: 11/17/16 07:01 Dose: Not Given Thiamine HCl (Vitamin B-1) 100 mg PO DAILY [facility] Last Admin: 11/17/16 08:19 Dose: 100 mg Zolpidem Tartrate (Ambien) 5 mg PO QPM PRN PRN Reason: Insomnia traMADol [Ultram] 50 mg PO Q6H PRN 11/16/16 Objective - Vital Signs/Intake & Output Reviewed Vital Signs: Yes Vital Signs: Vital Signs x48h Temp Pulse Pulse Resp BP Pulse Ox 11/17/16 08:18 37.4 C 76 17 110/65 99 09/21/17 07:45 78 18 11/17/16 03:21 36.9 C 81 18 129/78 98 Intake & Output: Intake & Output 11/14/16 11/15/16 11/16/16 11/17/16 23:59 23:59 23:59 23:59 Intake Total 2370 1516 Output Total 625 Balance 2370 891 - Objective General Appearance: positive: Alert, Moderate distress (from the left chest pleuritic pain that seems to radiate into LUQ and left mid abdomen), Other ( middled aged male who looks stated age, furrowed brow, occasionally anxious "willis got to get out of here. I'm dying.") Eyes Bilateral: positive: PERRL, EOMI, No scleral icterus Neck: positive: No JVD. negative: Lymphadenopathy (R), Lymphadenopathy (L), Carotid bruit Respiratory: positive: Chest non-tender, Rales, Other (very painful over left posterior rib cage and down flank along spine). negative: Wheezes, Rhonchi Cardiovascular: positive: Regular rate & rhythm. negative: Gallop/S4, Friction rub Abdomen: positive: Nml bowel sounds, Tenderness (LUQ just below rib cage. I think pain is more from moving ribs than true abd pain). negative: Guarding, Rebound Skin: positive: Warm Extremities: positive: Non-tender, No pedal edema Neurologic/Psychiatric: positive: Oriented x3, CN's nml (2-12), Motor nml, Depressed mood/affect - Lab Results Fish Bones: 11/17/16 04:46 11/17/16 04:46 Other Labs: Lab Results x24hrs 11/17/16 11/17/16 11/17/16 Range/Units 04:46 04:46 04:46 WBC 7.8 (4.8-10.8) x10^3/uL RBC 3.43 L (4.70-6.10) 10^6/uL Hgb 12.6 L (14.0-18.0) g/dL Hct 36.1 L (42.0-52.0) % MCV 105.2 H (80.0-94.0) fL MCH 36.8 H (27.0-31.0) pg MCHC 35.0 (32.0-36.0) g/dL RDW 13.8 (12.0-15.0) % Plt Count 76 L (130-450) 10^3/uL MPV 8.7 (7.4-11.4) fL Neut # 6.1 (1.5-6.6) 10^3/uL Lymph # 0.9 L (1.5-3.5) 10^3/uL [place] # 0.7 (0.0-1.0) 10^3/uL Eos # 0.0 (0.0-0.7) 10^3/uL Baso # 0.0 (0.0-0.1) 10^3/uL Absolute Nucleated RBC 0.01 x10^3/uL Nucleated RBCs 0.1 /100WBC VBG pH 7.455 H (7.31-7.41) Ionized Calcium 1.07 L YES (1.15-1.33) mmol/L Sodium 132 L (135-145) mmol/L Potassium 3.7 (3.5-5.0) mmol/L Chloride 102 (101-111) mmol/L Carbon Dioxide 24 (21-32) mmol/L Anion Gap 6.0 (6-13) BUN 9 (6-20) mg/dL Creatinine 0.7 (0.6-1.2) mg/dL Estimated GFR (MDRD) 114 (>89) Glucose 113 H (70-100) mg/dL Calcium 7.6 L (8.5-10.3) mg/dL Total Bilirubin 2.8 H (0.2-1.0) mg/dL AST 76 H (10-42) IU/L ALT 51 (10-60) IU/L Alkaline Phosphatase 61 (42-121) IU/L Total Protein 5.5 L (6.7-8.2) g/dL Albumin 2.2 L (3.2-5.5) g/dL Globulin 3.3 (2.1-4.2) g/dL Albumin/Globulin Ratio 0.7 L (1.0-2.2) Assessment/Plan - Problem List (1) CAP (community acquired pneumonia) Impression: 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 The patient has been treated with Levaquin for 7 days but has not had improvement in symptoms. On x-ray and CT the patient's left lower lobe pneumonia appears to be improving but developing a loculated pleural effusion that may be early empyema. The patient however continues to have increasing shortness of air, cough, severe pleuritic chest pain that radiates from the left lateral/ posterior rib cage down his spine and generalized fatigue. Although the patient 's pneumonia appears to be improving on the chest x-ray it appears the patient may be developing a loculated effusion likely empyema. Blood cultures negative at 24 hours Day #2 Cefepime and Vancomycin Plan: Admit to the hospital for IV antibiotics with cefepime and vancomycin for broad spectrum coverage given the patient has not responded to Levaquin at home. Spoke to surgery, Dr. Bradshaw Oxygen continues Pain control continues Cough suppressant Qualifiers: Laterality: left (2) Empyema lung Conclusion/Plan: Patient's x-ray shows improving left lower lobe pneumonia but he now appears to have a small loculated left pleural effusion with pleural enhancement worrisome for empyema. Plan: Spoke to surgery, Dr. Bradshaw, about possible drainage of pleural effusion and empyema. She feels it's long and skinny above his left flank. She feels he has 3 options: 1. Interventional radiology may be able to reach it. She will Call Prov IR. 2. Do Video Assisted Thoracotomy here. 3. Continue abx for now and just wait to see if gets better on his own he has opted for #1 and he will go outpt to Prov tomorow. Has to be there by 10: 30 am. NPO after midnight. Repeat PT/INR. Give broad-spectrum IV antibiotics with cefepime and vancomycin Monitor closely for hemodynamic instability. (3) Liver cirrhosis Conclusion/Plan: Patient had elevated bilirubin, AST and ALT on presentation. Patient has a history of hepatitis C but states it was treated in the past. The patient does admit to drinking daily 6 pack usually for many years. On CT abdomen pelvis patient appears to have cirrhosis with portal hypertension. Plan: Monitor CMP, INR and platelet count. Patient will need follow-up with his primary care physician for further workup for cirrhosis. The patient will need an EGD to look for esophageal varices and may eventually need to be started on medications for ascites and hepatic encephalopathy if patient develops these complications. Patient will need referral to hepatology as an outpatient Patient counseled on need to quit drinking and he says he will no longer drink. is at the bedside. Hepatitis panel shows Positive Hep C Ab and being run for viral activity. Hep B neg. (4) Alcohol abuse Conclusion/Plan: Patient states he drinks 4-6 beers a day. Given his history of hepatitis C and now new onset cirrhosis. Patient was advised to quit drinking and patient was placed on alcohol withdrawal protocol while he is hospitalized. Patient will be given thiamine, multivitamin and folic acid. B12 and folate levels are nml. (5) Major depressive disorder. He refuses meds. Use to see a counsellor but stopped. May go back to that. To make himself happy may need to leave here and go back to [place]. Qualifiers: Laterality: left
[2016-11-17] MEDS: PRENATAL VITAMIN TABLET PO SCH (10:29)
[2016-11-17] MEDS: MORPHINE 2 MG/ML SYRINGE IVP PRN ×3 (11:16→23:51)
[2016-11-17] MEDS: SODIUM CHLORIDE 0.9% 1,000 ML IV SCH ×2 (11:42→22:01)
[2016-11-17 17:48] LABS: INR 1.4 (0.8-1.2); PT - PROTHROMBIN TIME 15.8 secs (9.9-12.6)
[2016-11-18] MEDS: SODIUM CHLORIDE 0.9% 1,000 ML IV SCH ×2 (03:45→13:52)
[2016-11-18] MEDS: oxyCODONE 5 MG TABLET PO PRN ×3 (04:15→19:48)
[2016-11-18] MEDS: SODIUM CHLORIDE FLUSH 0.9% 10 ML SYRINGE IVP SCH ×3 (05:17→20:36)
[2016-11-18] MEDS: PANTOPRAZOLE 40 MG TABLET PO SCH (06:20)
[2016-11-18] MEDS: VANCOMYCIN INJ 1 GM in SODIUM CHLORIDE 0.9% 250 ML IV SCH ×3 (06:21→21:24)
[2016-11-18 06:30] LABS: BASOPHILS # (AUTO) 0.1 10^3/uL (0.0-0.1); EOSINOPHILS # (AUTO) 0.1 10^3/uL (0.0-0.7); EOSINOPHILS % (AUTO) 0.4 %; HCT - HEMATOCRIT 40.2 % (42.0-52.0); HGB - HEMOGLOBIN 13.9 g/dL (14.0-18.0); LYMPHOCYTES # (AUTO) 1.5 10^3/uL (1.5-3.5); LYMPHOCYTES % (AUTO) 11.9 %; MEAN CORPUSCULAR HEMOGLOBIN 36.4 pg (27.0-31.0); MEAN CORPUSCULAR HGB CONC 34.5 g/dL (32.0-36.0); MEAN CORPUSCULAR VOLUME 105.5 fL (80.0-94.0); MEAN PLATELET VOLUME 8.1 fL (7.4-11.4); MONOCYTES % (AUTO) 7.8 %; NEUTROPHILS # (AUTO) 9.7 10^3/uL (1.5-6.6); NEUTROPHILS % (AUTO) 78.9 %; RED BLOOD COUNT 3.81 10^6/uL (4.70-6.10); RED CELL DISTRIBUTION WIDTH 14.1 % (12.0-15.0); UNCORRECTED WHITE BLOOD COUNT 12.3 x10^3/uL; WHITE BLOOD COUNT 12.3 x10^3/uL (4.8-10.8)
[2016-11-18 06:35] LABS: ALBUMIN/GLOBULIN RATIO 0.6 (1.0-2.2); BILIRUBIN,TOTAL 3.1 mg/dL (0.2-1.0); BUN - BLOOD UREA NITROGEN 8 mg/dL (6-20); CALCIUM 8.4 mg/dL (8.5-10.3); CARBON DIOXIDE - CO2 24 mmol/L (21-32); CHLORIDE 102 mmol/L (101-111); CREATININE 0.7 mg/dL (0.6-1.2); GFR - MDRD 114 (>89); GLUCOSE 120 mg/dL (70-100); POTASSIUM 3.5 mmol/L (3.5-5.0); SODIUM 135 mmol/L (135-145); TOTAL PROTEIN 7.1 g/dL (6.7-8.2)
--- NOTE | 2016-11-18 07:50 | PROVIDER PROGRESS NOTE ---
Subjective - Prog Note Date Prog Note Date: 11/18/16 Prog Note Time: 07:48 - Subjective Pt reports feeling: No change Subjective: goes to Prov today for pig tail catheter insertion into left empyema. still with the chest wall pain, pleuritic and radiates down left mid abd, LUQ and along back left flank. Current Medications - Current Medications Current Medications: Active Medications Acetaminophen (Tylenol) 650 mg PO Q4HR PRN PRN Reason: Pain 1 to 4 Albuterol/Ipratropium (Duoneb) 3 ml INH RTQID PRN PRN Reason: Wheezing Enoxaparin Sodium (Lovenox) 40 mg SUBQ DAILY [facility] Last Admin: 11/17/16 08:19 Dose: 40 mg Guaifenesin/Codeine Phosphate (Robitussin Ac) 5 ml PO Q6HR PRN PRN Reason: Cough Sodium Chloride (Normal Saline 0.9%) 1,000 mls @ 100 mls/hr IV .Q10H [facility] Last Admin: 11/18/16 03:45 Dose: 100 mls/hr Cefepime HCl 2 gm/ Sodium (Chloride) 100 mls @ 200 mls/hr IV BID [facility] Last Admin: 11/17/16 20:41 Dose: 200 mls/hr Vancomycin HCl 1 gm/ Sodium (Chloride) 250 mls @ 167 mls/hr IV Q8H [facility] Last Admin: 11/18/16 06:21 Dose: 167 mls/hr Lorazepam (Ativan) 1 mg PO Q1H PRN; Protocol PRN Reason: CIWA > 8 Last Admin: 11/16/16 18:25 Dose: 1 mg Morphine Sulfate (Morphine) 2 mg IVP Q2H PRN PRN Reason: Pain 8 to 10 Last Admin: 11/17/16 23:51 Dose: 2 mg Ondansetron HCl (Zofran Inj) 4 mg IVP Q6HR PRN PRN Reason: Nausea / Vomiting Oxycodone HCl (Roxicodone) 5 mg PO Q4HR PRN PRN Reason: Pain 5 to 7 Last Admin: 11/18/16 04:15 Dose: 5 mg Oxycodone HCl (Roxicodone) 10 mg PO Q4HR PRN PRN Reason: Pain 8 to 10 Last Admin: 11/16/16 22:31 Dose: 10 mg Pantoprazole Sodium (Protonix) 40 mg PO QDAC [facility] Last Admin: 11/18/16 06:20 Dose: 40 mg Polyethylene Glycol (Miralax) 17 gm PO DAILY [facility] Last Admin: 11/17/16 08:18 Dose: 17 gm Multivit/Folic Acid/Iron (Trinatal Rx 1) 1 tab PO DAILY [facility] Last Admin: 11/17/16 10:29 Dose: 1 tab Prochlorperazine Edisylate (Compazine Inj) 10 mg IVP Q6HR PRN PRN Reason: Nausea / Vomiting Saccharomyces Boulardii (Florastor) 250 mg PO BIDWM [facility] Last Admin: 11/17/16 17:09 Dose: Not Given Sodium Chloride (Normal Saline Flush 0.9%) 10 ml IVP PRN PRN PRN Reason: NEEDED PER PROVIDER ORDERS Last Admin: 11/16/16 03:03 Dose: 10 ml Sodium Chloride (Normal Saline Flush 0.9%) 10 ml IVP Q8HR [facility] Last Admin: 11/18/16 05:17 Dose: Not Given Thiamine HCl (Vitamin B-1) 100 mg PO DAILY [facility] Last Admin: 11/17/16 08:19 Dose: 100 mg Zolpidem Tartrate (Ambien) 5 mg PO QPM PRN PRN Reason: Insomnia traMADol [Ultram] 50 mg PO Q6H PRN 11/16/16 Objective - Vital Signs/Intake & Output Reviewed Vital Signs: Yes Vital Signs: Vital Signs x48h Temp Pulse Resp BP Pulse Ox 11/18/16 07:43 36.0 C L 67 20 106/55 L 96 11/18/16 06:26 37.2 C 73 18 107/60 98 11/18/16 04:13 37.1 C 73 18 106/59 L 97 11/18/16 00:11 37.2 C 75 18 117/73 99 Intake & Output: Intake & Output 11/15/16 11/16/16 11/17/16 11/18/16 23:59 23:59 23:59 23:59 Intake Total 2370 3614 1021 Output Total 3075 875 Balance 2370 539 146 - Lab Results Fish Bones: 11/18/16 06:10 11/18/16 06:10 Other Labs: Lab Results x24hrs 11/18/16 11/18/1617 Range/Units 06:10 06:10 17:34 WBC 12.3 H (4.8-10.8) x10^3/uL RBC 3.81 L (4.70-6.10) 10^6/uL Hgb 13.9 L (14.0-18.0) g/dL Hct 40.2 L (42.0-52.0) % MCV 105.5 H (80.0-94.0) fL MCH 36.4 H (27.0-31.0) pg MCHC 34.5 (32.0-36.0) g/dL RDW 14.1 (12.0-15.0) % Plt Count 117 L (130-450) 10^3/uL MPV 8.1 (7.4-11.4) fL Neut # 9.7 H (1.5-6.6) 10^3/uL Lymph # 1.5 (1.5-3.5) 10^3/uL [place] # 1.0 (0.0-1.0) 10^3/uL Eos # 0.1 (0.0-0.7) 10^3/uL Baso # 0.1 (0.0-0.1) 10^3/uL Absolute Nucleated RBC 0.00 x10^3/uL Nucleated RBCs 0.0 /100WBC PT 15.8 H (9.9-12.6) secs INR 1.4 H (0.8-1.2) Sodium 135 (135-145) mmol/L Potassium 3.5 (3.5-5.0) mmol/L Chloride 102 (101-111) mmol/L Carbon Dioxide 24 (21-32) mmol/L Anion Gap 9.0 (6-13) BUN 8 (6-20) mg/dL Creatinine 0.7 (0.6-1.2) mg/dL Estimated GFR (MDRD) 114 (>89) Glucose 120 H (70-100) mg/dL Calcium 8.4 L (8.5-10.3) mg/dL Ionized Calcium NO Total Bilirubin 3.1 H (0.2-1.0) mg/dL AST 88 H (10-42) IU/L ALT 56 (10-60) IU/L Alkaline Phosphatase 75 (42-121) IU/L Total Protein 7.1 (6.7-8.2) g/dL Albumin 2.7 L (3.2-5.5) g/dL Globulin 4.4 H (2.1-4.2) g/dL Albumin/Globulin Ratio 0.6 L (1.0-2.2) Last Dose Date Last Dose Time Vancomycin Trough (5.0-15.0) ug/mL Hepatitis A IgM Ab (NON-REACTIVE) Hep Bs Antigen (NON-REACTIVE) Hep B Core IgM Ab (NON-REACTIVE) Hepatitis C Antibody (NON-REACTIVE) Hep C Ab Signal/Cutoff (<1.00) 11/17/16 11/16/16 11/16/16 Range/Units 13:33 06:00 06:00 WBC (4.8-10.8) x10^3/uL RBC (4.70-6.10) 10^6/uL Hgb (14.0-18.0) g/dL Hct (42.0-52.0) % MCV (80.0-94.0) fL MCH (27.0-31.0) pg MCHC (32.0-36.0) g/dL RDW (12.0-15.0) % Plt Count (130-450) 10^3/uL MPV (7.4-11.4) fL Neut # (1.5-6.6) 10^3/uL Lymph # (1.5-3.5) 10^3/uL [place] # (0.0-1.0) 10^3/uL Eos # (0.0-0.7) 10^3/uL Baso # (0.0-0.1) 10^3/uL Absolute Nucleated RBC x10^3/uL Nucleated RBCs /100WBC PT (9.9-12.6) secs INR (0.8-1.2) Sodium (135-145) mmol/L Potassium (3.5-5.0) mmol/L Chloride (101-111) mmol/L Carbon Dioxide (21-32) mmol/L Anion Gap (6-13) BUN (6-20) mg/dL Creatinine (0.6-1.2) mg/dL Estimated GFR (MDRD) (>89) Glucose (70-100) mg/dL Calcium (8.5-10.3) mg/dL Ionized Calcium Total Bilirubin (0.2-1.0) mg/dL AST (10-42) IU/L ALT (10-60) IU/L Alkaline Phosphatase (42-121) IU/L Total Protein (6.7-8.2) g/dL Albumin (3.2-5.5) g/dL Globulin (2.1-4.2) g/dL Albumin/Globulin Ratio (1.0-2.2) Last Dose Date 11/17/16 Last Dose Time 0155 Vancomycin Trough 5.6 (5.0-15.0) ug/mL Hepatitis A IgM Ab NON-REACTIVE (NON-REACTIVE) Hep Bs Antigen NON-REACTIVE (NON-REACTIVE) Hep B Core IgM Ab NON-REACTIVE (NON-REACTIVE) Hepatitis C Antibody REACTIVE H REACTIVE H (NON-REACTIVE) Hep C Ab Signal/Cutoff 28.00 H 28.00 H (<1.00) Assessment/Plan - Problem List (1) CAP (community acquired pneumonia) Impression: The patient has a 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 The patient has been treated with Levaquin for 7 days but has not had improvement in symptoms. On x-ray and CT the patient's left lower lobe pneumonia appears to be improving but developing a loculated pleural effusion that may be early empyema. The patient however continues to have increasing shortness of air, cough, severe pleuritic chest pain that radiates from the left lateral/ posterior rib cage down his spine and generalized fatigue. Although the patient 's pneumonia appears to be improving on the chest x-ray it appears the patient may be developing a loculated effusion likely empyema. Blood cultures negative at 24 hours Day #3 Cefepime and Vancomycin todays's WBC is up to 12K where he was normal on admit and the last 2 days. No fever. On exam looks stable but this is worrisome. Plan: Admit to the hospital for IV antibiotics with cefepime and vancomycin for broad spectrum coverage given the patient has not responded to Levaquin at home. Spoke to surgery, Dr. Bradshaw Oxygen continues Pain control continues Cough suppressant Qualifiers: Laterality: left (2) Empyema lung Conclusion/Plan: Patient's x-ray shows improving left lower lobe pneumonia but he now appears to have a small loculated left pleural effusion with pleural enhancement worrisome for empyema. Plan: Spoke to surgery, Dr. Bradshaw, about possible drainage of pleural effusion and empyema. She feels it's long and skinny above his left flank. She feels he has 3 options: 1. Interventional radiology may be able to reach it. She will Call Prov IR. 2. Do Video Assisted Thoracotomy here. 3. Continue abx for now and just wait to see if gets better on his own he has opted for #1 and he will go outpt to Prov this am. Has to be there by 10: 30 am. NPO after midnight already. Repeat PT/INR last night shows stable INR at 1.4. Give broad-spectrum IV antibiotics with cefepime and vancomycin. Day #3. Monitor closely for hemodynamic instability. (3) Liver cirrhosis Conclusion/Plan: Patient had elevated bilirubin, AST and ALT on presentation. Patient has a history of hepatitis C but states it was treated in the past. The patient does admit to drinking daily 6 pack usually for many years. On CT abdomen pelvis patient appears to have cirrhosis with portal hypertension. Hepatitis panel shows Positive Hep C Ab and being run for viral activity. Hep B neg. Plan: Monitor CMP, INR and platelet count. Patient will need follow-up with his primary care physician for further workup for cirrhosis. The patient will need an EGD to look for esophageal varices and may eventually need to be started on medications for ascites and hepatic encephalopathy if patient develops these complications. Patient will need referral to hepatology as an outpatient Patient counseled on need to quit drinking 11/17 and he says he will no longer drink. is at the bedside. (4) Alcohol abuse Conclusion/Plan: Patient states he drinks 4-6 beers a day. Given his history of hepatitis C and now new onset cirrhosis. Patient was advised to quit drinking and patient was placed on alcohol withdrawal protocol while he is hospitalized. Patient has been given thiamine, multivitamin and folic acid. Changed from IV to oral yesterday. B12 and folate levels are nml. (5) Major depressive disorder. He refuses meds. Use to see a counsellor but stopped. May go back to that. To make himself happy may need to leave here and go back to [place].
[2016-11-18] MEDS: POLYETHYLENE GLYCOL 3350 17 GM PACKET PO SCH (09:32)
[2016-11-18] MEDS: ENOXAPARIN 40 MG/0.4 ML SYRINGE SUBQ SCH (09:32)
[2016-11-18] MEDS: SACCHAROMYCES BOULARDII 250 MG CAPSULE PO SCH ×2 (09:32→17:06)
[2016-11-18] MEDS: CEFEPIME 2 GM in SODIUM CHLORIDE 0.9% MINIBAG 100 ML IV SCH ×2 (09:32→20:35)
[2016-11-18] MEDS: THIAMINE 100 MG TABLET PO SCH (09:33)
[2016-11-18] MEDS: PRENATAL VITAMIN TABLET PO SCH (09:33)
[2016-11-18] MEDS: SODIUM CHLORIDE FLUSH 0.9% 10 ML SYRINGE IVP PRN (17:08)
[2016-11-18] MEDS: MORPHINE 2 MG/ML SYRINGE IVP PRN (17:08)
[2016-11-19] MEDS: MORPHINE 2 MG/ML SYRINGE IVP PRN ×3 (00:32→18:27)
[2016-11-19] MEDS: SODIUM CHLORIDE 0.9% 1,000 ML IV SCH ×3 (03:27→19:23)
[2016-11-19] MEDS: VANCOMYCIN INJ 1 GM in SODIUM CHLORIDE 0.9% 250 ML IV SCH ×3 (05:25→22:13)
[2016-11-19] MEDS: oxyCODONE 5 MG TABLET PO PRN ×3 (05:36→20:38)
[2016-11-19] MEDS: PANTOPRAZOLE 40 MG TABLET PO SCH (06:07)
[2016-11-19 06:28] LABS: BASOPHILS % (AUTO) 0.4 %; EOSINOPHILS % (AUTO) 0.6 %; HCT - HEMATOCRIT 33.7 % (42.0-52.0); HGB - HEMOGLOBIN 11.8 g/dL (14.0-18.0); LYMPHOCYTES # (AUTO) 0.7 10^3/uL (1.5-3.5); LYMPHOCYTES % (AUTO) 10.1 %; MEAN CORPUSCULAR VOLUME 105.5 fL (80.0-94.0); MEAN PLATELET VOLUME 8.3 fL (7.4-11.4); MONOCYTES # (AUTO) 0.5 10^3/uL (0.0-1.0); MONOCYTES % (AUTO) 7.3 %; NEUTROPHILS # (AUTO) 5.7 10^3/uL (1.5-6.6); NEUTROPHILS % (AUTO) 81.6 %; RED CELL DISTRIBUTION WIDTH 13.4 % (12.0-15.0)
[2016-11-19 06:36] LABS: ALBUMIN/GLOBULIN RATIO 0.6 (1.0-2.2); BILIRUBIN,TOTAL 2.1 mg/dL (0.2-1.0); BUN - BLOOD UREA NITROGEN 9 mg/dL (6-20); CALCIUM 7.9 mg/dL (8.5-10.3); CARBON DIOXIDE - CO2 26 mmol/L (21-32); CHLORIDE 101 mmol/L (101-111); CREATININE 0.7 mg/dL (0.6-1.2); GFR - MDRD 114 (>89); GLUCOSE 166 mg/dL (70-100); POTASSIUM 3.8 mmol/L (3.5-5.0); SODIUM 133 mmol/L (135-145); TOTAL PROTEIN 5.9 g/dL (6.7-8.2)
[2016-11-19 06:47] LABS: CALCIUM, IONIZED 1.1 mmol/L (1.15-1.33); VBG PH 7.47 (7.31-7.41)
[2016-11-19] MEDS: SODIUM CHLORIDE FLUSH 0.9% 10 ML SYRINGE IVP SCH ×3 (07:35→22:14)
[2016-11-19] MEDS: SACCHAROMYCES BOULARDII 250 MG CAPSULE PO SCH ×2 (08:32→18:23)
[2016-11-19] MEDS: CEFEPIME 2 GM in SODIUM CHLORIDE 0.9% MINIBAG 100 ML IV SCH ×2 (08:33→20:38)
[2016-11-19] MEDS: ENOXAPARIN 40 MG/0.4 ML SYRINGE SUBQ SCH (08:34)
[2016-11-19] MEDS: POLYETHYLENE GLYCOL 3350 17 GM PACKET PO SCH (08:36)
[2016-11-19] MEDS: THIAMINE 100 MG TABLET PO SCH (08:36)
[2016-11-19] MEDS: PRENATAL VITAMIN TABLET PO SCH (08:54)
--- NOTE | 2016-11-19 17:09 | PROVIDER PROGRESS NOTE ---
Subjective - Prog Note Date Prog Note Date: 11/19/16 Prog Note Time: 17:07 - Subjective Pt reports feeling: No change (Tired, in pain. Poor appetite. All of this is unchanged. Present on admission and not much improved. He has not had fevers or any hemodynamic instability while here. Oxygen level and requirement the same. Pain has been his main problem in that left flank and left upper quadrant rib cage) Current Medications - Current Medications Current Medications: Active Medications Acetaminophen (Tylenol) 650 mg PO Q4HR PRN PRN Reason: Pain 1 to 4 Albuterol/Ipratropium (Duoneb) 3 ml INH RTQID PRN PRN Reason: Wheezing Enoxaparin Sodium (Lovenox) 40 mg SUBQ DAILY [facility] Last Admin: 11/19/16 08:34 Dose: 40 mg Guaifenesin/Codeine Phosphate (Robitussin Ac) 5 ml PO Q6HR PRN PRN Reason: Cough Sodium Chloride (Normal Saline 0.9%) 1,000 mls @ 100 mls/hr IV .Q10H [facility] Last Admin: 11/19/16 05:36 Dose: 100 mls/hr Cefepime HCl 2 gm/ Sodium (Chloride) 100 mls @ 200 mls/hr IV BID [facility] Last Admin: 11/19/16 08:33 Dose: 200 mls/hr Vancomycin HCl 1 gm/ Sodium (Chloride) 250 mls @ 167 mls/hr IV Q8H [facility] Last Admin: 11/19/16 14:52 Dose: 167 mls/hr Lorazepam (Ativan) 1 mg PO Q1H PRN; Protocol PRN Reason: CIWA > 8 Last Admin: 11/16/16 18:25 Dose: 1 mg Morphine Sulfate (Morphine) 2 mg IVP Q2H PRN PRN Reason: Pain 8 to 10 Last Admin: 11/19/16 09:04 Dose: 2 mg Ondansetron HCl (Zofran Inj) 4 mg IVP Q6HR PRN PRN Reason: Nausea / Vomiting Oxycodone HCl (Roxicodone) 5 mg PO Q4HR PRN PRN Reason: Pain 5 to 7 Last Admin: 11/18/16 04:15 Dose: 5 mg Oxycodone HCl (Roxicodone) 10 mg PO Q4HR PRN PRN Reason: Pain 8 to 10 Last Admin: 11/19/16 15:00 Dose: 10 mg Pantoprazole Sodium (Protonix) 40 mg PO QDAC [facility] Last Admin: 11/19/16 06:07 Dose: 40 mg Polyethylene Glycol (Miralax) 17 gm PO DAILY [facility] Last Admin: 11/19/16 08:36 Dose: 17 gm Multivit/Folic Acid/Iron (Trinatal Rx 1) 1 tab PO DAILY [facility] Last Admin: 11/19/16 08:54 Dose: 1 tab Prochlorperazine Edisylate (Compazine Inj) 10 mg IVP Q6HR PRN PRN Reason: Nausea / Vomiting Saccharomyces Boulardii (Florastor) 250 mg PO BIDWM [facility] Last Admin: 11/19/16 08:32 Dose: 250 mg Sodium Chloride (Normal Saline Flush 0.9%) 10 ml IVP PRN PRN PRN Reason: NEEDED PER PROVIDER ORDERS Last Admin: 11/18/16 17:08 Dose: 10 ml Sodium Chloride (Normal Saline Flush 0.9%) 10 ml IVP Q8HR [facility] Last Admin: 11/19/16 14:45 Dose: Not Given Thiamine HCl (Vitamin B-1) 100 mg PO DAILY [facility] Last Admin: 11/19/16 08:36 Dose: 100 mg Triamcinolone Acetonide (Kenalog 0.1% Cream) 1 applic TOP BID [facility] Zolpidem Tartrate (Ambien) 5 mg PO QPM PRN PRN Reason: Insomnia traMADol [Ultram] 50 mg PO Q6H PRN 11/16/16 Objective - Vital Signs/Intake & Output Reviewed Vital Signs: Yes Vital Signs: Vital Signs x48h Temp Pulse Resp BP Pulse Ox 11/19/16 15:38 37 C 71 20 99/52 L 96 Intake & Output: Intake & Output 11/16/16 11/17/16 11/18/16 11/19/16 23:59 23:59 23:59 23:59 Intake Total 2370 3614 1688 2530 Output Total 3075 1710 2032 Balance 2370 539 -22 498 - Objective General Appearance: positive: No acute distress, Alert, Other (Constantly furrowed brow and depressed withdrawn affect) Eyes Bilateral: positive: PERRL, EOMI Neck: positive: No JVD. negative: Stiff neck, Carotid bruit Respiratory: positive: Rhonchi (left), Other (Pleuritic pain over left flank and underneath left back rib cage). negative: No respiratory distress, Wheezes , Rales Cardiovascular: positive: Regular rate & rhythm, No murmur. negative: Gallop/S4 , Friction rub Abdomen: positive: Non-tender, No organomegaly, Nml bowel sounds Skin: positive: Warm, Dry Extremities: positive: Full ROM, No pedal edema Neurologic/Psychiatric: positive: Oriented x3, CN's nml (2-12), Motor nml, Depressed mood/affect - Lab Results Fish Bones: 11/19/16 05:37 11/19/16 05:37 Other Labs: Lab Results x24hrs 11/19/16 11/19/16 11/19/16 Range/Units 05:37 05:37 05:37 WBC 7.0 (4.8-10.8) x10^3/uL RBC 3.20 L (4.70-6.10) 10^6/uL Hgb 11.8 L (14.0-18.0) g/dL Hct 33.7 L (42.0-52.0) % MCV 105.5 H (80.0-94.0) fL MCH 37.0 H (27.0-31.0) pg MCHC 35.0 (32.0-36.0) g/dL RDW 13.4 (12.0-15.0) % Plt Count 94 L (130-450) 10^3/uL MPV 8.3 (7.4-11.4) fL Neut # 5.7 (1.5-6.6) 10^3/uL Lymph # 0.7 L (1.5-3.5) 10^3/uL [place] # 0.5 (0.0-1.0) 10^3/uL Eos # 0.0 (0.0-0.7) 10^3/uL Baso # 0.0 (0.0-0.1) 10^3/uL Absolute Nucleated RBC 0.00 x10^3/uL Nucleated RBCs 0.0 /100WBC VBG pH 7.470 H (7.31-7.41) Ionized Calcium 1.10 L YES (1.15-1.33) mmol/L Sodium 133 L (135-145) mmol/L Potassium 3.8 (3.5-5.0) mmol/L Chloride 101 (101-111) mmol/L Carbon Dioxide 26 (21-32) mmol/L Anion Gap 6.0 (6-13) BUN 9 (6-20) mg/dL Creatinine 0.7 (0.6-1.2) mg/dL Estimated GFR (MDRD) 114 (>89) Glucose 166 H (70-100) mg/dL Calcium 7.9 L (8.5-10.3) mg/dL Total Bilirubin 2.1 H (0.2-1.0) mg/dL AST 64 H (10-42) IU/L ALT 41 (10-60) IU/L Alkaline Phosphatase 56 (42-121) IU/L Total Protein 5.9 L (6.7-8.2) g/dL Albumin 2.2 L (3.2-5.5) g/dL Globulin 3.7 (2.1-4.2) g/dL Albumin/Globulin Ratio 0.6 L (1.0-2.2) Assessment/Plan - Problem List (1) CAP (community acquired pneumonia) Impression: The patient has a left lower lobe pneumonia that was diagnosed 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 The patient has been treated with Levaquin for 7 days but has not had improvement in symptoms. On x-ray and CT the patient's left lower lobe pneumonia appears to be improving but developing a loculated pleural effusion that may be early empyema. The patient however continues to have increasing shortness of air, cough, severe pleuritic chest pain that radiates from the left lateral/ posterior rib cage down his spine and generalized fatigue. Although the patient 's pneumonia appears to be improving on the chest x-ray it appears the patient may be developing a loculated effusion likely empyema. Blood cultures negative at 24 hours Day #4 Cefepime and Vancomycin 11/18 WBC was up to 12K where he was normal on admit and previous 2 days. No fever. Today back down to 7K. Plan: Admit to the hospital for IV antibiotics with cefepime and vancomycin for broad spectrum coverage given the patient has not responded to Levaquin at home. Spoke to surgery, Dr. Bradshaw. She recommended options listed in #2. Oxygen continues Pain control continues Cough suppressant Qualifiers: Laterality: left (2) Empyema lung Conclusion/Plan: Patient's x-ray shows improving left lower lobe pneumonia but he now appears to have a small loculated left pleural effusion with pleural enhancement worrisome for empyema. Plan: Spoke to surgery, Dr. Bradshaw, on 11/17 about possible drainage of pleural effusion and empyema. She feels it's long and skinny above his left flank. She feels he has 3 options: 1. Interventional radiology may be able to reach it. She will Call Prov IR. 2. Do Video Assisted Thoracotomy here. 3. Continue abx for now and just wait to see if gets better on his own he has opted for #1 and he went to outpt to [facility] Interventional Radiology on . Give broad-spectrum IV antibiotics with cefepime and vancomycin. Day #4. Monitor closely for hemodynamic instability. (3) Liver cirrhosis Conclusion/Plan: Patient had elevated bilirubin, AST and ALT on presentation. Patient has a history of hepatitis C but states it was treated in the past. The patient does admit to drinking daily 6 pack usually for many years. On CT abdomen pelvis patient appears to have cirrhosis with portal hypertension. Hepatitis panel shows Positive Hep C Ab and being run for viral activity. Hep B neg. Plan: Monitor CMP, INR and platelet count. Patient will need follow-up with his primary care physician for further workup for cirrhosis. The patient will need an EGD to look for esophageal varices and may eventually need to be started on medications for ascites and hepatic encephalopathy if patient develops these complications. Patient will need referral to hepatology as an outpatient Patient counseled on need to quit drinking 11/17 and he says he will no longer drink. is at the bedside. (4) Alcohol abuse Conclusion/Plan: Patient states he drinks 4-6 beers a day. Given his history of hepatitis C and now new onset cirrhosis. Patient was advised to quit drinking and patient was placed on alcohol withdrawal protocol while he is hospitalized. It is now 4 days and there has been no withdrawal. Patient has been given thiamine, multivitamin and folic acid. Changed from IV to oral 11/17 B12 and folate levels are nml. (5) Major depressive disorder. He refuses meds. Use to see a counsellor but stopped. May go back to that. To make himself happy may need to leave here and go back to [place].
[2016-11-19] MEDS: TRIAMCINOLONE 0.1% CREAM 15 GM TUBE TOP SCH (21:15)
[2016-11-20 05:30] LABS: BASOPHILS % (AUTO) 0.7 %; EOSINOPHILS # (AUTO) 0.1 10^3/uL (0.0-0.7); HCT - HEMATOCRIT 32.6 % (42.0-52.0); HGB - HEMOGLOBIN 11.4 g/dL (14.0-18.0); LYMPHOCYTES # (AUTO) 0.8 10^3/uL (1.5-3.5); LYMPHOCYTES % (AUTO) 13.1 %; MEAN CORPUSCULAR HEMOGLOBIN 36.7 pg (27.0-31.0); MEAN CORPUSCULAR VOLUME 104.7 fL (80.0-94.0); MEAN PLATELET VOLUME 7.5 fL (7.4-11.4); MONOCYTES # (AUTO) 0.6 10^3/uL (0.0-1.0); MONOCYTES % (AUTO) 9.4 %; NEUTROPHILS # (AUTO) 4.8 10^3/uL (1.5-6.6); NEUTROPHILS % (AUTO) 75.8 %; RED BLOOD COUNT 3.11 10^6/uL (4.70-6.10); RED CELL DISTRIBUTION WIDTH 13.8 % (12.0-15.0); UNCORRECTED WHITE BLOOD COUNT 6.3 x10^3/uL; WHITE BLOOD COUNT 6.3 x10^3/uL (4.8-10.8)
[2016-11-20 05:50] LABS: ALBUMIN/GLOBULIN RATIO 0.6 (1.0-2.2); BILIRUBIN,TOTAL 1.9 mg/dL (0.2-1.0); BUN - BLOOD UREA NITROGEN 8 mg/dL (6-20); CALCIUM 7.9 mg/dL (8.5-10.3); CARBON DIOXIDE - CO2 27 mmol/L (21-32); CHLORIDE 103 mmol/L (101-111); CREATININE 0.7 mg/dL (0.6-1.2); GFR - MDRD 114 (>89); GLUCOSE 114 mg/dL (70-100); POTASSIUM 4.1 mmol/L (3.5-5.0); SODIUM 135 mmol/L (135-145); TOTAL PROTEIN 6.1 g/dL (6.7-8.2)
[2016-11-20 05:53] LABS: HEMOGLOBIN A1C 0.31 g/dL
[2016-11-20] MEDS: VANCOMYCIN INJ 1 GM in SODIUM CHLORIDE 0.9% 250 ML IV SCH ×2 (06:04→14:12)
[2016-11-20] MEDS: PANTOPRAZOLE 40 MG TABLET PO SCH (06:05)
[2016-11-20 06:08] LABS: CALCIUM, IONIZED 1.1 mmol/L (1.15-1.33); VBG PH 7.472 (7.31-7.41)
[2016-11-20] MEDS: oxyCODONE 5 MG TABLET PO PRN ×4 (06:08→21:23)
[2016-11-20] MEDS: SODIUM CHLORIDE FLUSH 0.9% 10 ML SYRINGE IVP SCH ×2 (06:34→14:37)
--- NOTE | 2016-11-20 07:58 | PROVIDER PROGRESS NOTE ---
Subjective - Prog Note Date Prog Note Date: 11/20/16 Prog Note Time: 18:15 - Subjective Pt reports feeling: Improved Subjective: Dr. Hook had checked a chest x-ray and the chest x-ray showed good improvement in the empyema. So he pulled the tube. We are now recheck in the chest x-ray. Current Medications - Current Medications Current Medications: Active Medications Acetaminophen (Tylenol) 650 mg PO Q4HR PRN PRN Reason: Pain 1 to 4 Albuterol/Ipratropium (Duoneb) 3 ml INH RTQID PRN PRN Reason: Wheezing Enoxaparin Sodium (Lovenox) 40 mg SUBQ DAILY [facility] Last Admin: 11/19/16 08:34 Dose: 40 mg Guaifenesin/Codeine Phosphate (Robitussin Ac) 5 ml PO Q6HR PRN PRN Reason: Cough Sodium Chloride (Normal Saline 0.9%) 1,000 mls @ 100 mls/hr IV .Q10H [facility] Last Admin: 11/19/16 19:23 Dose: 100 mls/hr Cefepime HCl 2 gm/ Sodium (Chloride) 100 mls @ 200 mls/hr IV BID [facility] Last Admin: 11/19/16 20:38 Dose: 200 mls/hr Vancomycin HCl 1 gm/ Sodium (Chloride) 250 mls @ 167 mls/hr IV Q8H [facility] Last Admin: 11/20/16 06:04 Dose: 167 mls/hr Lorazepam (Ativan) 1 mg PO Q1H PRN; Protocol PRN Reason: CIWA > 8 Last Admin: 11/16/16 18:25 Dose: 1 mg Morphine Sulfate (Morphine) 2 mg IVP Q2H PRN PRN Reason: Pain 8 to 10 Last Admin: 11/19/16 18:27 Dose: 2 mg Ondansetron HCl (Zofran Inj) 4 mg IVP Q6HR PRN PRN Reason: Nausea / Vomiting Oxycodone HCl (Roxicodone) 5 mg PO Q4HR PRN PRN Reason: Pain 5 to 7 Last Admin: 11/18/16 04:15 Dose: 5 mg Oxycodone HCl (Roxicodone) 10 mg PO Q4HR PRN PRN Reason: Pain 8 to 10 Last Admin: 11/20/16 06:08 Dose: 10 mg Pantoprazole Sodium (Protonix) 40 mg PO QDAC [facility] Last Admin: 11/20/16 06:05 Dose: 40 mg Polyethylene Glycol (Miralax) 17 gm PO DAILY [facility] Last Admin: 11/19/16 08:36 Dose: 17 gm Multivit/Folic Acid/Iron (Trinatal Rx 1) 1 tab PO DAILY [facility] Last Admin: 11/19/16 08:54 Dose: 1 tab Prochlorperazine Edisylate (Compazine Inj) 10 mg IVP Q6HR PRN PRN Reason: Nausea / Vomiting Saccharomyces Boulardii (Florastor) 250 mg PO BIDWM [facility] Last Admin: 11/19/16 18:23 Dose: 250 mg Sodium Chloride (Normal Saline Flush 0.9%) 10 ml IVP PRN PRN PRN Reason: NEEDED PER PROVIDER ORDERS Last Admin: 11/18/16 17:08 Dose: 10 ml Sodium Chloride (Normal Saline Flush 0.9%) 10 ml IVP Q8HR [facility] Last Admin: 11/20/16 06:34 Dose: Not Given Thiamine HCl (Vitamin B-1) 100 mg PO DAILY [facility] Last Admin: 11/19/16 08:36 Dose: 100 mg Triamcinolone Acetonide (Kenalog 0.1% Cream) 1 applic TOP BID [facility] Last Admin: 11/19/16 21:15 Dose: Not Given Zolpidem Tartrate (Ambien) 5 mg PO QPM PRN PRN Reason: Insomnia traMADol [Ultram] 50 mg PO Q6H PRN 11/16/16 Objective - Vital Signs/Intake & Output Reviewed Vital Signs: Yes Vital Signs: Vital Signs x48h Temp Pulse Resp BP Pulse Ox 11/20/16 07:37 36.8 C 68 16 109/67 97 11/20/16 06:00 36.7 C 66 15 101/60 98 Intake & Output: Intake & Output 11/17/16 11/18/16 11/19/16 11/20/16 23:59 23:59 23:59 23:59 Intake Total 3614 1688 3891 1250 Output Total 3075 1710 3632 535 Balance 539 -22 259 715 - Objective General Appearance: positive: Alert, Other (he is so happy tube is out) Eyes Bilateral: positive: PERRL, EOMI ENT: positive: Pharynx nml Neck: positive: No JVD. negative: Stiff neck, Carotid bruit Respiratory: positive: Chest non-tender. negative: Wheezes, Rales, Rhonchi Cardiovascular: positive: Regular rate & rhythm. negative: Gallop/S4, Friction rub Abdomen: positive: Non-tender, Nml bowel sounds. negative: Guarding, Rebound Skin: positive: Warm, Dry Extremities: positive: Full ROM, No pedal edema Neurologic/Psychiatric: positive: Oriented x3, CN's nml (2-12), Motor nml - Lab Results Fish Bones: 11/20/16 05:18 11/20/16 05:18 Other Labs: Lab Results x24hrs 11/20/16 11/20/16 11/20/16 Range/Units 05:18 05:18 05:18 WBC (4.8-10.8) x10^3/uL RBC (4.70-6.10) 10^6/uL Hgb (14.0-18.0) g/dL Hct (42.0-52.0) % MCV (80.0-94.0) fL MCH (27.0-31.0) pg MCHC (32.0-36.0) g/dL RDW (12.0-15.0) % Plt Count (130-450) 10^3/uL MPV (7.4-11.4) fL Neut # (1.5-6.6) 10^3/uL Lymph # (1.5-3.5) 10^3/uL [place] # (0.0-1.0) 10^3/uL Eos # (0.0-0.7) 10^3/uL Baso # (0.0-0.1) 10^3/uL Absolute Nucleated RBC x10^3/uL Nucleated RBCs /100WBC VBG pH 7.472 H (7.31-7.41) Ionized Calcium 1.10 L YES (1.15-1.33) mmol/L Sodium 135 (135-145) mmol/L Potassium 4.1 (3.5-5.0) mmol/L Chloride 103 (101-111) mmol/L Carbon Dioxide 27 (21-32) mmol/L Anion Gap 5.0 L (6-13) BUN 8 (6-20) mg/dL Creatinine 0.7 (0.6-1.2) mg/dL Estimated GFR (MDRD) 114 (>89) Glucose 114 H (70-100) mg/dL Glycated Hemoglobin 4.6 (4.6-6.2) % Estim Average Glucose 85 (70-100) Calcium 7.9 L (8.5-10.3) mg/dL Total Bilirubin 1.9 H (0.2-1.0) mg/dL AST 57 H (10-42) IU/L ALT 37 (10-60) IU/L Alkaline Phosphatase 54 (42-121) IU/L Total Protein 6.1 L (6.7-8.2) g/dL Albumin 2.2 L (3.2-5.5) g/dL Globulin 3.9 (2.1-4.2) g/dL Albumin/Globulin Ratio 0.6 L (1.0-2.2) 11/20/16 Range/Units 05:18 WBC 6.3 (4.8-10.8) x10^3/uL RBC 3.11 L (4.70-6.10) 10^6/uL Hgb 11.4 L (14.0-18.0) g/dL Hct 32.6 L (42.0-52.0) % MCV 104.7 H (80.0-94.0) fL MCH 36.7 H (27.0-31.0) pg MCHC 35.0 (32.0-36.0) g/dL RDW 13.8 (12.0-15.0) % Plt Count 101 L (130-450) 10^3/uL MPV 7.5 (7.4-11.4) fL Neut # 4.8 (1.5-6.6) 10^3/uL Lymph # 0.8 L (1.5-3.5) 10^3/uL [place] # 0.6 (0.0-1.0) 10^3/uL Eos # 0.1 (0.0-0.7) 10^3/uL Baso # 0.0 (0.0-0.1) 10^3/uL Absolute Nucleated RBC 0.00 x10^3/uL Nucleated RBCs 0.0 /100WBC VBG pH (7.31-7.41) Ionized Calcium (1.15-1.33) mmol/L Sodium (135-145) mmol/L Potassium (3.5-5.0) mmol/L Chloride (101-111) mmol/L Carbon Dioxide (21-32) mmol/L Anion Gap (6-13) BUN (6-20) mg/dL Creatinine (0.6-1.2) mg/dL Estimated GFR (MDRD) (>89) Glucose (70-100) mg/dL Glycated Hemoglobin (4.6-6.2) % Estim Average Glucose (70-100) Calcium (8.5-10.3) mg/dL Total Bilirubin (0.2-1.0) mg/dL AST (10-42) IU/L ALT (10-60) IU/L Alkaline Phosphatase (42-121) IU/L Total Protein (6.7-8.2) g/dL Albumin (3.2-5.5) g/dL Globulin (2.1-4.2) g/dL Albumin/Globulin Ratio (1.0-2.2) Assessment/Plan - Problem List (1) CAP (community acquired pneumonia) Impression: The patient has a left lower lobe pneumonia that was diagnosed 1 week [place]. The patient has been treated with Levaquin for 7 days but has not had improvement in symptoms. On x-ray and CT the patient's left lower lobe pneumonia appears to be improving but developing a loculated pleural effusion that may be early empyema. The patient however continues to have increasing shortness of air, cough, severe pleuritic chest pain that radiates from the left lateral/ posterior rib cage down his spine and generalized fatigue. Although the patient 's pneumonia appears to be improving on the chest x-ray it appears the patient may be developing a loculated effusion likely empyema. Blood cultures negative at 24 hours Day #5 Cefepime and Vancomycin. Change to levaquin since tube is pulled. 11/18 WBC was up to 12K where he was normal on admit and previous 2 days. No fever. 11/19 was back down to 7K. Still no fevers and O2 sats have been stable without increase need. Plan: Admit to the hospital for IV antibiotics with cefepime and vancomycin for broad spectrum coverage given the patient has not responded to Levaquin at home. Spoke to surgery, Dr. Bradshaw. She recommended options listed in #2. Oxygen continues Pain control continues and he feels it's adequate Cough suppressant Qualifiers: Laterality: left (2) Empyema lung Conclusion/Plan: Patient's x-ray shows improving left lower lobe pneumonia but he now appears to have a small loculated left pleural effusion with pleural enhancement worrisome for empyema. Plan: Spoke to surgery, Dr. Bradshaw, on 11/17 about possible drainage of pleural effusion and empyema. She feels it's long and skinny above his left flank. She feels he has 3 options: 1. Interventional radiology may be able to reach it. She will Call Prov IR. 2. Do Video Assisted Thoracotomy here. 3. Continue abx for now and just wait to see if gets better on his own he has opted for #1 and he went to outpt to [facility] on . Give broad-spectrum IV antibiotics with cefepime and vancomycin. Day #5. change to levaquin since tube is pulled. Dr. Hook has now taken out the tube because the CXR was improved. We will recheck a chest x-ray. We will change the patient over to oral antibiotics tonight, and continue oral pain medicines. He says the oxycodone is too strong so we will change him over to hydrocodone. If everything stays controlled tonight he can be discharged tomorrow morning (3) Liver cirrhosis Conclusion/Plan: Patient had elevated bilirubin, AST and ALT on presentation. Patient has a history of hepatitis C but states it was treated in the past. The patient does admit to drinking daily 6 pack usually for many years. On CT abdomen pelvis patient appears to have cirrhosis with portal hypertension. Hepatitis panel shows Positive Hep C Ab and being run for viral activity. Hep B neg. I called the lab and the RNA quant should have been back from [facility] but it may take until 11/21 for it to be entered into the computer. Will need a phone call on 11/21 to make sure we get it. This will help determine his prognosis for down the road Plan: Monitor CMP, INR and platelet count. Patient will need follow-up with his primary care physician for further workup for cirrhosis. The patient will need an EGD to look for esophageal varices and may eventually need to be started on medications for ascites and hepatic encephalopathy if patient develops these complications. Patient will need referral to hepatology as an outpatient Patient counseled on need to quit drinking 11/17 and he says he will no longer drink. is at the bedside. (4) Alcohol abuse Conclusion/Plan: Patient states he drinks 4-6 beers a day. Given his history of hepatitis C and now new onset cirrhosis. Patient was advised to quit drinking and patient was placed on alcohol withdrawal protocol while he is hospitalized. It is now 4 days and there has been no withdrawal. Patient has been given thiamine, multivitamin and folic acid. Changed from IV to oral 11/17 B12 and folate levels are nml. (5) Major depressive disorder. He refuses meds. Use to see a counsellor but stopped. May go back to that. To make himself happy may need to leave here and go back to [place]. He misses his family. He has lost his mom, dad, sister, another brother, and his son. There is a hole inside him that can't be filled. So he just kills time to get by . Also laments his kids just don't make time to see him. "I'm just a stepping stone for a short time when there here and then they leave to wherever they go and I don't see them for years." Not even his grandkids.
[2016-11-20] MEDS: POLYETHYLENE GLYCOL 3350 17 GM PACKET PO SCH (09:31)
[2016-11-20] MEDS: CEFEPIME 2 GM in SODIUM CHLORIDE 0.9% MINIBAG 100 ML IV SCH (09:31)
[2016-11-20] MEDS: THIAMINE 100 MG TABLET PO SCH (09:31)
[2016-11-20] MEDS: SODIUM CHLORIDE 0.9% 1,000 ML IV SCH ×2 (09:31→19:07)
[2016-11-20] MEDS: SACCHAROMYCES BOULARDII 250 MG CAPSULE PO SCH ×2 (09:31→16:18)
[2016-11-20] MEDS: PRENATAL VITAMIN TABLET PO SCH (09:31)
[2016-11-20] MEDS: TRIAMCINOLONE 0.1% CREAM 15 GM TUBE TOP SCH (10:19)
--- NOTE | 2016-11-20 10:29 | PROVIDER PROGRESS NOTE ---
Subjective - General Admit Date: 11/16/16 - Review of Systems General: positive: No symptoms Objective - Patient Data Vital Signs: Vital Signs x48h Temp Pulse Resp BP Pulse Ox 11/20/16 07:56 14 11/20/16 07:37 36.8 C 68 16 109/67 97 11/20/16 06:00 36.7 C 66 15 101/60 98 Intake & Output: Intake and Output Totals x24h 11/18/16 11/19/16 11/20/16 23:59 23:59 23:59 Intake Total 1688 3891 2801 Output Total 1710 3632 735 Balance -22 259 2066 - Lab Results Lab Results: 11/20/16 05:18 11/20/16 05:18 Other Lab Results: Lab Results x24hrs 11/20/16 11/20/16 11/20/16 Range/Units 05:18 05:18 05:18 WBC (4.8-10.8) x10^3/uL RBC (4.70-6.10) 10^6/uL Hgb (14.0-18.0) g/dL Hct (42.0-52.0) % MCV (80.0-94.0) fL MCH (27.0-31.0) pg MCHC (32.0-36.0) g/dL RDW (12.0-15.0) % Plt Count (130-450) 10^3/uL MPV (7.4-11.4) fL Neut # (1.5-6.6) 10^3/uL Lymph # (1.5-3.5) 10^3/uL [place] # (0.0-1.0) 10^3/uL Eos # (0.0-0.7) 10^3/uL Baso # (0.0-0.1) 10^3/uL Absolute Nucleated RBC x10^3/uL Nucleated RBCs /100WBC VBG pH 7.472 H (7.31-7.41) Ionized Calcium 1.10 L YES (1.15-1.33) mmol/L Sodium 135 (135-145) mmol/L Potassium 4.1 (3.5-5.0) mmol/L Chloride 103 (101-111) mmol/L Carbon Dioxide 27 (21-32) mmol/L Anion Gap 5.0 L (6-13) BUN 8 (6-20) mg/dL Creatinine 0.7 (0.6-1.2) mg/dL Estimated GFR (MDRD) 114 (>89) Glucose 114 H (70-100) mg/dL Glycated Hemoglobin 4.6 (4.6-6.2) % Estim Average Glucose 85 (70-100) Calcium 7.9 L (8.5-10.3) mg/dL Total Bilirubin 1.9 H (0.2-1.0) mg/dL AST 57 H (10-42) IU/L ALT 37 (10-60) IU/L Alkaline Phosphatase 54 (42-121) IU/L Total Protein 6.1 L (6.7-8.2) g/dL Albumin 2.2 L (3.2-5.5) g/dL Globulin 3.9 (2.1-4.2) g/dL Albumin/Globulin Ratio 0.6 L (1.0-2.2) 11/20/16 Range/Units 05:18 WBC 6.3 (4.8-10.8) x10^3/uL RBC 3.11 L (4.70-6.10) 10^6/uL Hgb 11.4 L (14.0-18.0) g/dL Hct 32.6 L (42.0-52.0) % MCV 104.7 H (80.0-94.0) fL MCH 36.7 H (27.0-31.0) pg MCHC 35.0 (32.0-36.0) g/dL RDW 13.8 (12.0-15.0) % Plt Count 101 L (130-450) 10^3/uL MPV 7.5 (7.4-11.4) fL Neut # 4.8 (1.5-6.6) 10^3/uL Lymph # 0.8 L (1.5-3.5) 10^3/uL [place] # 0.6 (0.0-1.0) 10^3/uL Eos # 0.1 (0.0-0.7) 10^3/uL Baso # 0.0 (0.0-0.1) 10^3/uL Absolute Nucleated RBC 0.00 x10^3/uL Nucleated RBCs 0.0 /100WBC VBG pH (7.31-7.41) Ionized Calcium (1.15-1.33) mmol/L Sodium (135-145) mmol/L Potassium (3.5-5.0) mmol/L Chloride (101-111) mmol/L Carbon Dioxide (21-32) mmol/L Anion Gap (6-13) BUN (6-20) mg/dL Creatinine (0.6-1.2) mg/dL Estimated GFR (MDRD) (>89) Glucose (70-100) mg/dL Glycated Hemoglobin (4.6-6.2) % Estim Average Glucose (70-100) Calcium (8.5-10.3) mg/dL Total Bilirubin (0.2-1.0) mg/dL AST (10-42) IU/L ALT (10-60) IU/L Alkaline Phosphatase (42-121) IU/L Total Protein (6.7-8.2) g/dL Albumin (3.2-5.5) g/dL Globulin (2.1-4.2) g/dL Albumin/Globulin Ratio (1.0-2.2) - Current Medications Current Medications: Current Medications Generic Name Dose Route Start Last Admin Trade Name Freq PRN Reason Stop Dose Admin Sodium Chloride 1,000 mls @ 100 mls/hr 11/16/16 02:00 11/20/16 09:31 Normal Saline 0.9% IV 100 mls/hr .Q10H [facility] Administration Cefepime HCl 2 gm/ Sodium 100 mls @ 200 mls/hr 11/16/16 02:00 11/20/16 09:31 Chloride IV 200 mls/hr BID [facility] Administration Vancomycin HCl 1 gm/ Sodium 250 mls @ 167 mls/hr 11/17/16 22:00 11/20/16 06:04 Chloride IV 167 mls/hr Q8H [facility] Administration Lorazepam 1 mg 11/16/16 03:26 11/16/16 18:25 Ativan PO 1 mg Q1H PRN Administration CIWA > 8 Protocol Morphine Sulfate 2 mg 11/16/16 01:41 11/19/16 18:27 Morphine IVP 2 mg Q2H PRN Administration Pain 8 to 10 Oxycodone HCl 5 mg 11/16/16 01:41 11/18/16 04:15 Roxicodone PO 5 mg Q4HR PRN Administration Pain 5 to 7 Oxycodone HCl 10 mg 11/16/16 01:41 11/20/16 10:18 Roxicodone PO 10 mg Q4HR PRN Administration Pain 8 to 10 Pantoprazole Sodium 40 mg 11/16/16 07:00 11/20/16 06:05 Protonix PO 40 mg QDAC [facility] Administration Polyethylene Glycol 17 gm 11/16/16 09:00 11/20/16 09:31 Miralax PO 17 gm DAILY [facility] Administration Multivit/Folic Acid/Iron 1 tab 11/16/16 09:00 11/20/16 09:31 Trinatal Rx 1 PO 1 tab DAILY [facility] Administration Saccharomyces Boulardii 250 mg 11/16/16 08:00 11/20/16 09:31 Florastor PO 250 mg BIDWM [facility] Administration Sodium Chloride 10 ml 11/16/16 01:41 11/18/16 17:08 Normal Saline Flush 0.9% IVP 10 ml PRN PRN Administration NEEDED PER PROVIDER ORDERS Sodium Chloride 10 ml 11/16/16 06:00 11/20/16 06:34 Normal Saline Flush 0.9% IVP Not Given Q8HR [facility] Thiamine HCl 100 mg 11/16/16 09:00 11/20/16 09:31 Vitamin B-1 PO 100 mg DAILY [facility] Administration Triamcinolone Acetonide 1 applic 11/19/16 21:00 11/20/16 10:19 Kenalog 0.1% Cream TOP Not Given BID [facility] Impression/Plan - Problem List Problem List: loculated left chest fluid collection s/p IR placement of chest tube. Minimal drainage from chest now 10 ml. -check chest xray. may need followup chest ct scan to show resolution -Obtain culture report from Izaiah Sun
[2016-11-20 13:27] LABS: LAST DOSE AMOUNT 1
--- NOTE | 2016-11-20 14:11 | XRAY Preliminary Report ---
Exam: XR Chest 2 View PA/LAT IMPRESSION: Left chest pseudotumor resolved, with drainage catheter in place, with atelectatic change s at the left base. No pneumothorax present. [facility] SITE ID: [id number]
--- NOTE | 2016-11-20 14:13 | XRAY Report ---
EXAM: CHEST RADIOGRAPHY EXAM DATE: 11/20/2016 11:51 AM. CLINICAL HISTORY: Followup chest tube placement. COMPARISON: 11/16/2016. TECHNIQUE: 2 views. FINDINGS: Lungs/Pleura: Interval decrease in size of left chest pseudotumor, with drainage catheter in place. A telectatic changes seen at the left base. Right lung is grossly clear. No pneumothorax present. Mediastinum: Heart and mediastinal contours are unremarkable. Other: None. IMPRESSION: Left chest pseudotumor resolved, with drainage catheter in place, with atelectatic change s at the left base. No pneumothorax present. [facility] Referring Provider Line: [phone] SITE ID: [id number]
[2016-11-20] MEDS: MORPHINE 2 MG/ML SYRINGE IVP PRN (17:55)
--- NOTE | 2016-11-20 20:31 | XRAY Preliminary Report ---
Exam: XR Chest 2 View PA/LAT IMPRESSION: 1. No pneumothorax identified post-left chest tube removal. 2. Mild left lower lobe atelectasis/infiltrate. [facility] SITE ID: [id number]
--- NOTE | 2016-11-20 20:34 | XRAY Report ---
EXAM: CHEST RADIOGRAPHY EXAM DATE: 11/20/2016 06:13 PM. CLINICAL HISTORY: Chest tube removal. COMPARISON: Today at 1143. TECHNIQUE: 2 views. FINDINGS: Lungs/Pleura: Mild right base atelectasis/infiltrate. Otherwise no focal opacities evident. No pleura l effusion. No pneumothorax. Normal volumes. Mediastinum: Heart and mediastinal contours are unremarkable. Other: No bony abnormalities noted. IMPRESSION: 1. No pneumothorax identified post-left chest tube removal. 2. Mild left lower lobe atelectasis/infiltrate. [facility] Referring Provider Line: [phone] SITE ID: [id number]
[2016-11-21] MEDS ORDERED: INSULIN REGULAR HUMAN 100 UNIT/1 ML 10 ML MDV SUBQ SCH
[2016-11-21] MEDS: SODIUM CHLORIDE FLUSH 0.9% 10 ML SYRINGE IVP SCH ×4 (00:03→20:29)
[2016-11-21] MEDS: TRIAMCINOLONE 0.1% CREAM 15 GM TUBE TOP SCH ×3 (00:04→20:29)
[2016-11-21] MEDS: PANTOPRAZOLE 40 MG TABLET PO SCH (05:46)
[2016-11-21] MEDS: oxyCODONE 5 MG TABLET PO PRN ×3 (05:46→14:37)
[2016-11-21 06:08] LABS: ALBUMIN/GLOBULIN RATIO 0.5 (1.0-2.2); BILIRUBIN,TOTAL 1.7 mg/dL (0.2-1.0); BUN - BLOOD UREA NITROGEN 8 mg/dL (6-20); CALCIUM 8.4 mg/dL (8.5-10.3); CARBON DIOXIDE - CO2 29 mmol/L (21-32); CHLORIDE 98 mmol/L (101-111); CREATININE 0.7 mg/dL (0.6-1.2); GFR - MDRD 114 (>89); GLUCOSE 99 mg/dL (70-100); SODIUM 133 mmol/L (135-145); TOTAL PROTEIN 6.7 g/dL (6.7-8.2)
[2016-11-21] MEDS: levoFLOXacin 250 MG TABLET PO SCH (08:41)
[2016-11-21] MEDS: PRENATAL VITAMIN TABLET PO SCH (08:41)
[2016-11-21] MEDS: THIAMINE 100 MG TABLET PO SCH (08:41)
[2016-11-21] MEDS: POLYETHYLENE GLYCOL 3350 17 GM PACKET PO SCH (08:42)
[2016-11-21] MEDS: SACCHAROMYCES BOULARDII 250 MG CAPSULE PO SCH ×2 (08:42→17:10)
--- NOTE | 2016-11-21 15:06 | CT Report ---
CT CHEST WITHOUT CONTRAST: 11/21/2016 CLINICAL INDICATION: Followup empyema following chest tube removal. COMPARISON: 11/16/2016 TECHNIQUE: Axial CT images of the chest were obtained without intravenous contrast. In accordance with CT protocol optimization, one or more of the following dose reduction techniques were utilized for this exam: automated exposure control, adjustment of mA and/or KV based on patient size, or use of iterative reconstructive technique. FINDINGS: The heart and great vessels appear unremarkable. No hilar or mediastinal lymphadenopathy is appreciated. There has been interval decrease in size of the loculated left posteromedial fluid collection, now measuring 4.3 x 1.9 cm at the level of the left mainstem bronchus (previously 5.5 x 3.5 cm at a similar level). A tiny focus of gas is present within the collection. Left lower lobe infiltrate has improved, but has not yet completely resolved. The right lung demonstrates a calcified granuloma. No pneumothorax or right pleural effusion is present. Osseous structures demonstrate degenerative changes. Limited evaluation of upper abdominal structures demonstrates stable anterior abdominal wall hernia and normal adrenal glands. IMPRESSION: INTERVAL DECREASE IN SIZE OF LOCULATED PLEURAL FLUID COLLECTION ON THE LEFT. SOME INTERVAL IMPROVEMENT IN LEFT LOWER LOBE INFILTRATE. JOB #: [id number] EXT JOB #: [id number] [facility]
--- NOTE | 2016-11-21 18:23 | PROVIDER PROGRESS NOTE ---
Assessment/Plan - Problem List (1) CAP (community acquired pneumonia) Assessment/Plan: Pt afebrile and no SOB on R.A. Will assess saturation with activity. Pt will need 4 more days of antibiotics. Will use po Levaquin at [facility]. (2) Empyema lung Assessment/Plan: CT of lung done as recommended by surgeon, Dr Hook; this showed significant decrease in pleural fluid (empyema). Awaiting surgical input. Vicodin prn pain at [facility] Probable [facility] tomorrow (3) Liver cirrhosis Qualifiers: Hepatic cirrhosis type: alcoholic cirrhosis Assessment/Plan: Stable - Current Meds Current Meds: Current Medications Generic Name Dose Route Start Last Admin Trade Name Freq PRN Reason Stop Dose Admin Levofloxacin 750 mg 11/21/16 09:00 11/21/16 08:41 Levaquin PO 750 mg DAILY RADHA Administration Lorazepam 1 mg 11/16/16 03:26 11/16/16 18:25 Ativan PO 1 mg Q1H PRN Administration CIWA > 8 Protocol Morphine Sulfate 2 mg 11/16/16 01:41 11/20/16 17:55 Morphine IVP 2 mg Q2H PRN Administration Pain 8 to 10 Oxycodone HCl 10 mg 11/20/16 20:48 11/21/16 14:37 Roxicodone PO 10 mg Q4HR PRN Administration PAIN Pantoprazole Sodium 40 mg 11/16/16 07:00 11/21/16 05:46 Protonix PO 40 mg QDAC RADHA Administration Polyethylene Glycol 17 gm 11/16/16 09:00 11/21/16 08:42 Miralax PO 17 gm DAILY RADHA Administration Multivit/Folic Acid/Iron 1 tab 11/16/16 09:00 11/21/16 08:41 Trinatal Rx 1 PO 1 tab DAILY RADHA Administration Saccharomyces Boulardii 250 mg 11/16/16 08:00 11/21/16 17:10 Florastor PO 250 mg BIDWM RADHA Administration Sodium Chloride 10 ml 11/16/16 01:41 11/18/16 17:08 Normal Saline Flush 0.9% IVP 10 ml PRN PRN Administration NEEDED PER PROVIDER ORDERS Sodium Chloride 10 ml 11/16/16 06:00 11/21/16 14:37 Normal Saline Flush 0.9% IVP 10 ml Q8HR RADHA Administration Thiamine HCl 100 mg 11/16/16 09:00 11/21/16 08:41 Vitamin B-1 PO 100 mg DAILY RADHA Administration Triamcinolone Acetonide 1 applic 11/19/16 21:00 11/21/16 08:45 Kenalog 0.1% Cream TOP Not Given BID RADHA - Lab Result Fish Bone Diagrams: 11/20/16 05:18 11/21/16 05:40 - Additional Planning My Orders: My Active Orders 11/21/16 15:29 Incentive Spirometry - RT [RC] .tid Subjective - Subjective Patient Reports: Feeling Better Nursing Reports: No Complaints Objective Vital Signs: Vital Signs - 24 hr 11/21/16 11/21/16 11/21/16 00:04 07:59 16:29 Temperature 36.8 C 37.2 C 36.8 C Heart Rate Heart Rate [ 72 77 74 Brachial] Respiratory 16 18 19 Rate Blood Pressure 99/59 L 112/61 100/54 L [Right Brachial artery] O2 Saturation 95 96 98 11/21/16 16:45 Temperature Heart Rate 75 Heart Rate [ Brachial] Respiratory 18 Rate Blood Pressure [Right Brachial artery] O2 Saturation Oxygen O2 Source Room air I&O (Last 24 Hrs): Intake and Output Totals x24h 11/19/16 11/20/16 11/21/16 23:59 23:59 23:59 Intake Total 3891 4417 1120 Output Total 3632 1965 Balance 259 2452 1120 General: Alert, Oriented x3 HEENT: Mucous membr. moist/pink Neck: No JVD Cardiovascular: Regular rate, No murmurs Respiratory: No respiratory distress, Breath sounds nml Extremities: No edema - Results Results: Laboratory Results WBC 6.3 x10^3/uL (4.8-10.8) 11/20/16 05:18 RBC 3.11 10^6/uL (4.70-6.10) L 11/20/16 05:18 Hgb 11.4 g/dL (14.0-18.0) L 11/20/16 05:18 Hct 32.6 % (42.0-52.0) L 11/20/16 05:18 MCV 104.7 fL (80.0-94.0) H 11/20/16 05:18 MCH 36.7 pg (27.0-31.0) H 11/20/16 05:18 MCHC 35.0 g/dL (32.0-36.0) 11/20/16 05:18 RDW 13.8 % (12.0-15.0) 11/20/16 05:18 Plt Count 101 10^3/uL (130-450) L 11/20/16 05:18 MPV 7.5 fL (7.4-11.4) 11/20/16 05:18 Neut # 4.8 10^3/uL (1.5-6.6) 11/20/16 05:18 Lymph # 0.8 10^3/uL (1.5-3.5) L 11/20/16 05:18 Camp # 0.6 10^3/uL (0.0-1.0) 11/20/16 05:18 Eos # 0.1 10^3/uL (0.0-0.7) 11/20/16 05:18 Baso # 0.0 10^3/uL (0.0-0.1) 11/20/16 05:18 Absolute Nucleated RBC 0.00 x10^3/uL 11/20/16 05:18 Nucleated RBCs 0.0 /100WBC 11/20/16 05:18 PT 15.8 secs (9.9-12.6) H 11/17/16 17:34 INR 1.4 (0.8-1.2) H 11/17/16 17:34 VBG pH 7.472 (7.31-7.41) H 11/20/16 05:18 Ionized Calcium 1.10 mmol/L (1.15-1.33) L 11/20/16 05:18 Sodium 133 mmol/L (135-145) L 11/21/16 05:40 Potassium 4.0 mmol/L (3.5-5.0) 11/21/16 05:40 Chloride 98 mmol/L (101-111) L 11/21/16 05:40 Carbon Dioxide 29 mmol/L (21-32) 11/21/16 05:40 Anion Gap 6.0 (6-13) 11/21/16 05:40 BUN 8 mg/dL (6-20) 11/21/16 05:40 Creatinine 0.7 mg/dL (0.6-1.2) 11/21/16 05:40 Estimated GFR (MDRD) 114 (>89) 11/21/16 05:40 Glucose 99 mg/dL (70-100) 11/21/16 05:40 Glycated Hemoglobin 4.6 % (4.6-6.2) 11/20/16 05:18 Estim Average Glucose 85 (70-100) 11/20/16 05:18 Calcium 8.4 mg/dL (8.5-10.3) L 11/21/16 05:40 Ionized Calcium NO 11/21/16 05:40 Total Bilirubin 1.7 mg/dL (0.2-1.0) H 11/21/16 05:40 AST 57 IU/L (10-42) H 11/21/16 05:40 ALT 37 IU/L (10-60) 11/21/16 05:40 Alkaline Phosphatase 60 IU/L (42-121) 11/21/16 05:40 Troponin I < 0.04 ng/mL (<0.49) 11/16/16 00:50 Total Protein 6.7 g/dL (6.7-8.2) 11/21/16 05:40 Albumin 2.3 g/dL (3.2-5.5) L 11/21/16 05:40 Globulin 4.4 g/dL (2.1-4.2) H 11/21/16 05:40 Albumin/Globulin Ratio 0.5 (1.0-2.2) L 11/21/16 05:40 Lipase 65 U/L (22-51) H 11/16/16 00:50 Vitamin B12 2692 pg/mL (180-914) H 11/16/16 06:00 Folate 15.59 ng/mL (5.90 - >24.8) 11/16/16 06:00 Dose 1 11/20/16 13:05 Last Dose Date 11/20/2016 11/20/16 13:05 Last Dose Time 60311/20/16 13:05 Vancomycin Trough 17.5 ug/mL (5.0-15.0) H 11/20/16 13:05 Hepatitis A IgM Ab NON-REACTIVE (NON-REACTIVE) 11/16/16 06:00 Hep Bs Antigen NON-REACTIVE (NON-REACTIVE) 11/16/16 06:00 Hep B Core IgM Ab NON-REACTIVE (NON-REACTIVE) 11/16/16 06:00 Hepatitis C Antibody REACTIVE (NON-REACTIVE) H 11/16/16 06:00 Hep C Ab Signal/Cutoff 28.00 (<1.00) H 11/16/16 06:00
[2016-11-22] MEDS: PANTOPRAZOLE 40 MG TABLET PO SCH (06:38)
[2016-11-22] MEDS: SODIUM CHLORIDE FLUSH 0.9% 10 ML SYRINGE IVP SCH (06:38)
[2016-11-22] MEDS: POLYETHYLENE GLYCOL 3350 17 GM PACKET PO SCH (09:24)
[2016-11-22] MEDS: SACCHAROMYCES BOULARDII 250 MG CAPSULE PO SCH (09:26)
[2016-11-22] MEDS: THIAMINE 100 MG TABLET PO SCH (09:26)
[2016-11-22] MEDS: levoFLOXacin 250 MG TABLET PO SCH (09:26)
[2016-11-22] MEDS: PRENATAL VITAMIN TABLET PO SCH (09:26)
[2016-11-22] MEDS: TRIAMCINOLONE 0.1% CREAM 15 GM TUBE TOP SCH (09:27)
[2016-11-22 09:55] VITALS: BP 101/59
--- NOTE | 2016-11-22 10:25 | Discharge Plan ---
Discharge Plan Disposition: 01 Home, Self Care Condition: Fair Prescriptions: oxyCODONE [Roxicodone] 10 mg PO Q4HR PRN #10 tablet PRN Reason: Pain levoFLOXacin [Levaquin] 750 mg PO DAILY #10 tablet Diet: Regular Activity Restrictions: No Restrictions Shower Restrictions: No Driving Restrictions: No Additional Instructions or Follow Up instructions: Finish all the new antibiotic pills. Make appointment to have follow-up in 7-[address] Julia Bradshaw regarding your chest No Smoking: If you smoke, Please STOP! Call for help. Follow-up with: Jigar Hernandes MD [Primary Care Provider] -
[2016-11-22] MEDS ORDERED: traMADol 50 MG TABLET PO PRN (11:39)
--- NOTE | 2016-11-22 13:49 | DISCHARGE SUMMARY ---
DATE OF ADMISSION: 11/16/2016 DATE OF DISCHARGE: 11/22/2016 PRESENT ILLNESS: This is a 61-year-old white male with a history of hepatitis C , skin cancer, benign GI tumor removed, prior alcohol abuse. The patient presented to the emergency room approximately 2 weeks before with a left lower lobe pneumonia, for which he was put on Levaquin for 7 days. He did not have improvement in his symptoms and had severe pleuritic left-sided chest pain. The patient actually had gone to a different facility for a second opinion and had drainage of a pleural effusion there. This presentation to our emergency room necessitated him to be admitted for persistent left lower lobe pneumonia and probable empyema. HOSPITAL COURSE AND DISCHARGE DIAGNOSES 1. Community acquired pneumonia. The pneumonia appeared to be improving on CT scan of the chest, but the loculated effusion was persistent. The patient had blood cultures done, which were negative. The patient was placed on IV cefepime and IV vancomycin. He had a chest tube placed by General Surgery, which was pulled out on day 4 of his admission. At that time his antibiotics were changed to p.o. Levaquin. His white blood count improved, as well as his pleuritic chest pain. On the day before admission, a repeat CT scan of the chest showed improvement of the amount of fluid. He was okayed for discharge by surgery to be followed by Dr. Julia Bradshaw in her clinic in 10-14 days. He is to finish a 14-day course of antibiotics and sent home on Levaquin 750 mg p.o. daily for an additional 10 days of treatment. He also requires oxycodone for pain management. 2. Empyema. This was managed with drainage at another facility and on the day before discharge, there had been no growth in the fluid that was sent for cultures at the other facility. At our location, his chest tube was removed 2 days before his discharge and the CT scan of the chest showed decreasing fluid accumulation. He was felt to be stable for discharge by surgery with followup with Dr. Bradshaw in the clinic. 3. Liver cirrhosis. The patient has a history of hepatitis C, which was apparently treated in the past. His labs here showed elevated bilirubin, AST, and ALT. A CT of the abdomen had shown cirrhosis and portal hypertension. Hepatitis panel showed a positive hepatitis C antibody and is being run for viral activity. Hepatitis B is negative. Determination of his prognosis would depend on results of the rest of his hepatitis panel. 4. Alcohol abuse. The patient drinks 4-6 beers a day. He was advised to quit drinking. There was no evidence of alcohol withdrawal during this admission, but he was placed on withdrawal protocol including thiamine, multivitamin, and folate. These were not continued at discharge. 5. Depressive disorder. The patient reports that he used to see a counselor and that there are social problems with his family members. Overall, there were no issues of depression during this admission. STATUS AT DISCHARGE: Stable. His physical exam was entirely normal. CODE STATUS: FULL CODE. MEDICATIONS AT DISCHARGE 1. Levaquin 750 mg p.o. daily. 2. Oxycodone 5 mg p.o. q.4 h. p.r.n. pain. 3. Ultram was not prescribed for a home medication. Time required for completion of discharge including exam, education, chartin minutes. JOB #: [id number] EXT JOB #:[id number] HONG
== END 2016-11-22 12:35 | disposition home or self-care (01) | DRG 177 ==
LOC: ED 23:42 → MS3 11-16 01:42
PROVIDERS: ADMIT Internal Medicine; ATTEND Internal Medicine
PROC: 0W9B30Z Drainage of Left Pleural Cavity with Drainage Device, Percutaneous Approach (ICD-10-PCS; principal; 2016-11-18)
DX: J86.9 Pyothorax without fistula (principal); J18.9 Pneumonia, unspecified organism; K76.6 Portal hypertension; E87.1 Hypo-osmolality and hyponatremia; J91.8 Pleural effusion in other conditions classified elsewhere; K70.30 Alcoholic cirrhosis of liver without ascites; F10.10 Alcohol abuse, uncomplicated; F32.9 Major depressive disorder, single episode, unspecified; D69.6 Thrombocytopenia, unspecified; Z86.19 Personal history of other infectious and parasitic diseases; Z85.828 Personal history of other malignant neoplasm of skin; Z87.19 Personal history of other diseases of the digestive system; Z63.79 Other stressful life events affecting family and household
CPT/HCPCS: 36415; 71020; 71250; 71275; 74177; 80053; 80074; 82330; 82607; 82746; 83036; 83690; 84484; 85025; 85610; 86803; 87040; 94640; 96361; 96374; 99283; 99284

== ENCOUNTER 2016-11-18 09:23 | Outpatient (CLI) | payer OTHER | END 2016-11-18 09:24 | disposition short-term general hospital (02) | LOC: EMS 09:23 | PROVIDERS: ATTEND Surgery | DX: J18.9 Pneumonia, unspecified organism (principal) | CPT/HCPCS: A0425; A0428 ==

== ENCOUNTER 2018-05-08 08:00 | Outpatient (CLI) | payer OTHER ==
[2018-05-08 13:07] LABS: BASOPHILS % (AUTO) 1.5 %; EOSINOPHILS # (AUTO) 0.1 10^3/uL (0.0-0.7); EOSINOPHILS % (AUTO) 2.8 %; HGB - HEMOGLOBIN 13.3 g/dL (14.0-18.0); LYMPHOCYTES # (AUTO) 0.9 10^3/uL (1.5-3.5); LYMPHOCYTES % (AUTO) 36.2 %; MEAN CORPUSCULAR HEMOGLOBIN 35.9 pg (27.0-31.0); MEAN CORPUSCULAR HGB CONC 34.7 g/dL (32.0-36.0); MEAN CORPUSCULAR VOLUME 103.4 fL (80.0-94.0); MEAN PLATELET VOLUME 9.1 fL (7.4-11.4); MONOCYTES # (AUTO) 0.3 10^3/uL (0.0-1.0); MONOCYTES % (AUTO) 10.7 %; NEUTROPHILS # (AUTO) 1.2 10^3/uL (1.5-6.6); NEUTROPHILS % (AUTO) 48.8 %; PLT - PLATELET COUNT 55 10^3/uL (130-450); WHITE BLOOD COUNT 2.5 x10^3/uL (4.8-10.8)
[2018-05-08 13:09] LABS: ALBUMIN 3.3 g/dL (3.2-5.5); ALBUMIN/GLOBULIN RATIO 0.9 (1.0-2.2); ALKALINE PHOSPHATASE 115 IU/L (42-121); ALT ALANINE AMINOTRANSFERASE 146 IU/L (10-60); AST ASPARTATE AMINOTRANSFERASE 120 IU/L (10-42); BILIRUBIN,TOTAL 0.8 mg/dL (0.2-1.0); BUN - BLOOD UREA NITROGEN 14 mg/dL (6-20); CALCIUM 8.8 mg/dL (8.5-10.3); CARBON DIOXIDE - CO2 27 mmol/L (21-32); CHLORIDE 106 mmol/L (101-111); CREATININE 0.8 mg/dL (0.6-1.2); GFR - MDRD 97 (>89); GLUCOSE 102 mg/dL (70-100); SODIUM 139 mmol/L (135-145); TOTAL PROTEIN 6.8 g/dL (6.7-8.2)
[2018-05-08 13:10] LABS: CRP - C-REACTIVE PROTEIN < 1.0 mg/dL (0-1.0)
[2018-05-08 13:37] LABS: PLATELET ESTIMATE, MANUAL DECREASED (<130,000) (NORMAL); PLATELET MORPHOLOGY NORMAL APPEARANCE (NORMAL); RBC MORPHOLOGY (MULTIPLE) 1+ MACROCYTOSIS (NORMAL)
== END 2018-05-08 23:59 | disposition home or self-care (01) ==
LOC: LAB.WCP 08:00
PROVIDERS: ATTEND Family Medicine
DX: R29.0 Tetany (principal); B18.2 Chronic viral hepatitis C; L30.9 Dermatitis, unspecified
CPT/HCPCS: 36415; 80053; 84443; 85025; 85651; 86140

== ENCOUNTER 2019-07-26 11:40 | Outpatient (CLI) | payer OTHER ==
[2019-07-26 13:30] LABS: BASOPHILS % (AUTO) 0.4 %; EOSINOPHILS # (AUTO) 0.1 10^3/uL (0.0-0.7); EOSINOPHILS % (AUTO) 2.8 %; HGB - HEMOGLOBIN 13.1 g/dL (14.0-18.0); LYMPHOCYTES # (AUTO) 0.8 10^3/uL (1.5-3.5); LYMPHOCYTES % (AUTO) 33.2 %; MEAN CORPUSCULAR HEMOGLOBIN 36.3 pg (27.0-31.0); MEAN CORPUSCULAR HGB CONC 34.3 g/dL (32.0-36.0); MEAN CORPUSCULAR VOLUME 105.8 fL (80.0-94.0); MEAN PLATELET VOLUME 11.1 fL (7.4-11.4); MONOCYTES # (AUTO) 0.3 10^3/uL (0.0-1.0); MONOCYTES % (AUTO) 12.6 %; NEUTROPHILS # (AUTO) 1.3 10^3/uL (1.5-6.6); PLT - PLATELET COUNT 45 10^3/uL (130-450); RED BLOOD COUNT 3.61 10^6/uL (4.70-6.10); RED CELL DISTRIBUTION WIDTH 13.1 % (12.0-15.0); WHITE BLOOD COUNT 2.5 x10^3/uL (4.8-10.8)
[2019-07-26 13:32] LABS: RBC MORPHOLOGY (MULTIPLE) 1+ ANISOCYTOSIS (NORMAL)
[2019-07-26 14:02] LABS: ALBUMIN 3.2 g/dL (3.2-5.5); CALCIUM 8.9 mg/dL (8.5-10.3); CREATININE 0.7 mg/dL (0.6-1.2); TOTAL PROTEIN 6.5 g/dL (6.7-8.2)
[2019-07-26 14:15] LABS: INR 1.3 (0.8-1.2); PT - PROTHROMBIN TIME 14.4 secs (9.9-12.6)
== END 2019-07-26 23:59 | disposition home or self-care (01) ==
LOC: LAB.WCP 11:40
PROVIDERS: ATTEND Family Medicine
DX: B18.2 Chronic viral hepatitis C (principal); L25.9 Unspecified contact dermatitis, unspecified cause
CPT/HCPCS: 36415; 80053; 84443; 85025; 85610; 85651; 87522

== ENCOUNTER 2020-08-29 10:41 | Outpatient (CLI) | payer OTHER, MEDICARE ==
[2020-08-29 13:54] LABS: BASOPHILS % (AUTO) 0.3 %; EOSINOPHILS # (AUTO) 0.1 10^3/uL (0.0-0.7); EOSINOPHILS % (AUTO) 1.6 %; HCT - HEMATOCRIT 40.4 % (42.0-52.0); HGB - HEMOGLOBIN 14.3 g/dL (14.0-18.0); LYMPHOCYTES # (AUTO) 0.6 10^3/uL (1.5-3.5); LYMPHOCYTES % (AUTO) 19.4 %; MEAN CORPUSCULAR HEMOGLOBIN 36.2 pg (27.0-31.0); MEAN CORPUSCULAR HGB CONC 35.4 g/dL (32.0-36.0); MEAN CORPUSCULAR VOLUME 102.3 fL (80.0-94.0); MEAN PLATELET VOLUME 11.3 fL (7.4-11.4); MONOCYTES # (AUTO) 0.4 10^3/uL (0.0-1.0); NEUTROPHILS # (AUTO) 2.1 10^3/uL (1.5-6.6); NEUTROPHILS % (AUTO) 66.7 %; PLT - PLATELET COUNT 55 10^3/uL (130-450); RED BLOOD COUNT 3.95 10^6/uL (4.70-6.10); RED CELL DISTRIBUTION WIDTH 14.7 % (12.0-15.0); WHITE BLOOD COUNT 3.1 x10^3/uL (4.8-10.8)
[2020-08-29 14:04] LABS: INR 1.3 (0.8-1.2)
[2020-08-29 14:47] LABS: THYROID STIMULATING HORMONE 0.74 uIU/mL (0.34-5.60)
[2020-08-29 14:58] LABS: ESTIMATED AVERAGE GLUCOSE 85 mg/dL (70-100); HEMOGLOBIN A1c% 4.6 % (4.27-6.07)
[2020-08-29 15:25] LABS: ALBUMIN 3.7 g/dL (3.2-5.5); ALBUMIN/GLOBULIN RATIO 0.9 (1.0-2.2); ALKALINE PHOSPHATASE 84 IU/L (42-121); ALT ALANINE AMINOTRANSFERASE 33 IU/L (10-60); AST ASPARTATE AMINOTRANSFERASE 44 IU/L (10-42); BILIRUBIN,TOTAL 1.8 mg/dL (0.2-1.0); BUN - BLOOD UREA NITROGEN 15 mg/dL (6-20); CALCIUM 8.7 mg/dL (8.5-10.3); CARBON DIOXIDE - CO2 27 mmol/L (21-32); CHLORIDE 102 mmol/L (101-111); CHOL/HDL RATIO 2.3 (<5.0); CHOLESTEROL 132 mg/dL; CREATININE 0.9 mg/dL (0.6-1.2); GFR - MDRD 84 (>89); GLUCOSE 113 mg/dL (70-100); HDL CHOLESTEROL 57 mg/dL; LDL CHOLESTEROL,CALCULATED 62 mg/dL; LDL/HDL RATIO 1.1 (<3.6); SODIUM 136 mmol/L (135-145); TOTAL PROTEIN 7.7 g/dL (6.7-8.2); TRIGLYCERIDES 66 mg/dL; VLDL CHOLESTEROL 13 mg/dL
[2020-09-02 08:21] LABS: HCV RNA QUANT RT PCR 12100 IU/mL
== END 2020-08-29 10:42 | disposition home or self-care (01) ==
LOC: LAB.N 10:41
PROVIDERS: ATTEND Internal Medicine
DX: B18.2 Chronic viral hepatitis C (principal); R73.01 Impaired fasting glucose; Z12.5 Encounter for screening for malignant neoplasm of prostate; F32.9 Major depressive disorder, single episode, unspecified
CPT/HCPCS: 36415; 80053; 80061; 82043; 82105; 82570; 83036; 83721; 84153; 84443; 85025; 85610; 87522; 87902

== ENCOUNTER 2020-09-02 08:00 | Outpatient (CLI) | payer OTHER, MEDICARE ==
[2020-09-02 18:26] LABS: CREATININE,URINE 71.1 mg/dL
[2020-09-02 19:33] LABS: MICROALBUMIN,URINE < 0.2 mg/dL (0-300.0)
== END 2020-09-02 23:59 | disposition home or self-care (01) ==
LOC: LAB.N 08:00
PROVIDERS: ATTEND Internal Medicine
DX: R73.01 Impaired fasting glucose (principal)
CPT/HCPCS: 82043; 82570

== ENCOUNTER 2020-11-25 11:04 | Outpatient (CLI) | payer OTHER, MEDICARE ==
[2020-11-25] MEDS ORDERED: SINCALIDE 1.5 MCG in SODIUM CHLORIDE 0.9% 50 ML IV ONE (14:32)
--- NOTE | 2020-11-25 16:09 | Nuclear Medicine Report ---
PROCEDURE: Hepatobiliary HIDA w/ Rx INDICATIONS: GALLSTONE RADIOPHARMACEUTICAL: 5.3 mCi Tc-99m meprofenin i.v. and 1.5 g sincalide i.v. TECHNIQUE: Following intravenous administration of Tc-99m meprofenin, sequential anterior abdominal images were obtained through minutes. To evaluate the contractile response of the gallbladder in response to Cholecystokinin (CCK), microgram sincalide (0.02 g/kg) was administered by slow int ravenous infusion approximately minutes after the administration of the radiopharmaceutical. Seq uential imaging was continued for 30 minutes after the start of CCK infusion. Gallbladder ejection f raction was calculated. COMPARISON: CT abdomen pelvis 11/16/2016 FINDINGS: Biliary scan: There is normal tracer uptake and excretion by the liver. There is normal visualizati on of the intrahepatic ducts, common bile duct, and gallbladder. There is normal tracer transit into the duodenum. CCK stimulation: There is contractile response of the gallbladder to CCK infusion. The calculated g allbladder ejection fraction is 93%; normal values are above 35%. IMPRESSION: 1. Normal biliary imaging study. Ejection fraction is within normal limits. 2. Normal contractile response of gallbladder to CCK infusion.. Reviewed by: Ifeoma Hoffmann MD on 11/25/2020 4:07 PM PDT Approved by: Ifeoma Hoffmann MD on 11/25/2020 4:07 PM PDT Station ID: [id number]
== END 2020-11-25 11:05 | disposition home or self-care (01) ==
LOC: DI 11:04
PROVIDERS: ATTEND Surgery
DX: K80.20 Calculus of gallbladder without cholecystitis without obstruction (principal); K74.60 Unspecified cirrhosis of liver
CPT/HCPCS: 78227; J7040

== ENCOUNTER 2021-06-01 07:31 | Emergency (ER) | payer MEDICARE, OTHER ==
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
[2021-06-01] MEDS ORDERED: BACITRACIN ZINC OINT 1 PACKET TOP STA (08:00)
[2021-06-01] MEDS ORDERED: TETANUS/DIPHTHERIA/PERTUSSIS 0.5 ML SYRINGE IM ONE (08:00)
[2021-06-01] MEDS ORDERED: oxyCODONE 5 MG TABLET PO STA (08:01)
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
[2021-06-01] MEDS ORDERED: MORPHINE 10 MG/ML VIAL IM STA (08:48)
--- NOTE | 2021-06-01 09:41 | CT Report ---
PROCEDURE: UPPER EXTREMITY WO - RT INDICATIONS: Evaluation for occult injury to wrist and forearm. TECHNIQUE: Noncontrast 3 mm axial sections acquired of the right wrist, with coronal and sagittal reformats. COMPARISON: Same day right wrist radiographs. FINDINGS: Acute, mildly displaced, and slightly comminuted dorsal triquetral avulsion fracture. No additional a cute fracture. Remote ulnar styloid fracture fragments are present. Mild to moderate osteophytic changes about the carpus including the radiocarpal joint, triscaphe join t, and proximal carpocarpal joints. Scattered subchondral cysts and osteophytes. Moderate sized joint effusion. No significant soft tissue pathology otherwise. IMPRESSION: Acute, mildly displaced, and slightly comminuted dorsal triquetral avulsion fracture. Reviewed by: Karl Myers MD on 06/01/2021 9:40 AM PDT Approved by: Karl Myers MD on 06/01/2021 9:40 AM PDT Station ID: [id number]
[2021-06-01 10:38] VITALS: BP 164/72
== END 2021-06-01 10:38 | disposition home or self-care (01) ==
LOC: ED 07:31
DX: S69.91XA Unspecified injury of right wrist, hand and finger(s), initial encounter (principal); S80.212A Abrasion, left knee, initial encounter; S80.211A Abrasion, right knee, initial encounter; V18.4XXA Pedal cycle driver injured in noncollision transport accident in traffic accident, initial encounter; Y93.55 Activity, bike riding
CPT/HCPCS: 73110; 73200; 90471; 90715; 96372; 99284; A9270

== ENCOUNTER 2021-06-10 14:30 | Outpatient (CLI) | payer MEDICARE ==
--- NOTE | 2021-06-10 17:35 | XRAY Report ---
PROCEDURE: Wrist 3 View RT INDICATIONS: WRIST FRACTURE TECHNIQUE: 3 views of the wrist were acquired. COMPARISON: 06/01/2021 FINDINGS: Bones: Small corticated ossifications noted adjacent to the ulnar styloid process which could represe nt accessory ossicles versus old avulsion injuries. Mild radiocarpal and triscaphe joint osteoarthrit is. Soft tissues: No suspicious soft tissue calcifications. IMPRESSION: 1. Stable examination compared to 06/01/2021. 2. Small ossifications adjacent to the ulnar process compatible with accessory ossicles versus old av ulsion injury. 3. Osteoarthritis. Reviewed by: Ella Briseno MD, PhD on 06/10/2021 5:34 PM PDT Approved by: Ella Briseno MD, PhD on 06/10/2021 5:34 PM PDT Station ID: [id number]
== END 2021-06-10 23:59 | disposition home or self-care (01) ==
LOC: DI.WOS 14:30
PROVIDERS: ATTEND Orthopaedic Surgery
DX: M19.031 Primary osteoarthritis, right wrist (principal)

== ENCOUNTER 2021-07-15 06:00 | Outpatient (CLI) | payer MEDICARE ==
--- NOTE | 2021-07-15 13:32 | XRAY Report ---
PROCEDURE: Wrist 3 View RT INDICATIONS: WRIST FX TECHNIQUE: 3 views of the wrist were acquired. COMPARISON: None FINDINGS: Bones: No acute fracture or dislocation. Small well-corticated ossifications adjacent to the ulnar st yloid are likely related to remote trauma. Scaphoid view: Mild radiocarpal and triscaphe joint osteo arthritis. There is periarticular osteopenia. Soft tissues: No suspicious soft tissue calcifications. IMPRESSION: 1. No acute abnormality. 2. Degenerative changes as above. Reviewed by: Song Ramirez on 07/15/2021 1:31 PM PDT Approved by: Song Ramirez on 07/15/2021 1:31 PM PDT Station ID: [id number]
== END 2021-07-15 23:59 | disposition home or self-care (01) ==
LOC: DI.WOS 06:00
PROVIDERS: ATTEND Orthopaedic Surgery
DX: M19.031 Primary osteoarthritis, right wrist (principal)

== ENCOUNTER 2021-09-14 08:30 | Outpatient (CLI) | payer MEDICARE ==
--- NOTE | 2021-09-14 13:12 | Ultrasound Report ---
PROCEDURE: Abdomen Complete INDICATIONS: CHRONIC HEPATITIS C TECHNIQUE: Real-time scanning was performed of the abdominal and retroperitoneal organs, with image documentatio n. COMPARISON: 11/16/2016 CT FINDINGS: Liver: Coarsened heterogeneous echotexture. Liver measures 10.5 cm. Gallbladder: Cholelithiasis Biliary ducts: CBD is mildly dilated at 8 mm. Pancreas: Not well seen Spleen: Mild splenomegaly at 14.5 cm. Kidneys: Kidneys are normal in size and echotexture. Right kidney measures 10 cm long; left kidney measures 11.8 cm long. No hydronephrosis or nephrolithiasis. No solid masses. Aorta: Visualized aorta is normal in caliber at less than 3 cm. Iliacs: Proximal common iliac arteries are normal in caliber at less than 2.5 cm. IVC: Intrahepatic inferior vena cava is patent. Miscellaneous: No free abdominal fluid. IMPRESSION: Cirrhosis and portal hypertension. No suspicious focal liver lesion. Mildly dilated CBD at 8 mm Cholelithiasis. Reviewed by: Shlomo Marks MD on 09/14/2021 1:10 PM PDT Approved by: Shlomo Marks MD on 09/14/2021 1:10 PM PDT Station ID: [id number]
== END 2021-09-14 08:31 | disposition home or self-care (01) ==
LOC: DI 08:30
PROVIDERS: ATTEND Internal Medicine
DX: K74.60 Unspecified cirrhosis of liver (principal); B18.2 Chronic viral hepatitis C; K76.6 Portal hypertension; K80.20 Calculus of gallbladder without cholecystitis without obstruction

== ENCOUNTER 2021-12-08 16:18 | Outpatient (CLI) | payer MEDICARE ==
--- NOTE | 2021-12-09 14:02 | XRAY Report ---
PROCEDURE: Lumbar Spine 2 View INDICATIONS: LOW BACK PX TECHNIQUE: 3 views of the lumbar spine were acquired. COMPARISON: None. FINDINGS: Bones: 5 [id number] vertebrae are present. There is normal bony alignment. No vertebral body compression fractures. No suspicious bony lesions. Disc space narrowing and sclerotic facet joints noted in the lower lumbar spine Soft tissues: Overlying bowel gas pattern is normal. No suspicious soft tissue calcifications. 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
== END 2021-12-08 23:59 | disposition home or self-care (01) ==
LOC: DI.N 16:18
PROVIDERS: ATTEND Registered Nurse
DX: M47.816 Spondylosis without myelopathy or radiculopathy, lumbar region (principal); K80.20 Calculus of gallbladder without cholecystitis without obstruction

== ENCOUNTER 2022-02-02 15:44 | Outpatient (CLI) | payer OTHER ==
--- NOTE | 2022-02-02 18:09 | MRI Report ---
PROCEDURE: LUMBAR SPINE WO INDICATIONS: LUMBAGO TECHNIQUE: Noncontrast sagittal T1 spin echo and T2 fast echo, sagittal STIR, axial T1 and T2 fast spin echo thr ough the lumbar spine. In cases with scoliosis, additional coronal T2 fast spin echo may be performe d. COMPARISON: Correlation is made with the lumbar spine plain films, 12/08/2021. FINDINGS: Image quality: Excellent. Alignment and Curvature: Mild dextroconvex scoliotic curvature is seen. No significant AP alignment abnormality can be seen. Bone Marrow: The bone marrow is diffusely heterogeneous, yet without focally suspicious bone marrow l esions. At the inferior endplate of L1, there is a focal lesion seen with edema, as on series 5 image 11. This is attributed to a subacute Schmorl's node. No acute vertebral body compression fractures. Spinal Cord: Conus medullaris terminates at the L1 level. Visualized cord demonstrates normal signa l and size. Paraspinous Soft Tissues: No paravertebral masses. T12-L1: Normal in appearance. L1-L2: Moderate loss of disc height and signal are seen. Moderate disc bulge is seen at this leve l. Mild facet hypertrophy is seen. Moderate bilateral neural foraminal narrowing is seen. Mild to moderate central canal narrowing is seen. L2-L3: The disc height is well-preserved. There is loss of disc signal seen. Moderate disc bulge is seen at this level. A superimposed central disc protrusion is seen. Moderate facet hypertrophy i s seen. There is moderate right-sided and at least moderate left-sided neuroforaminal narrowing. The re is a mild degree of compression seen upon the exiting left L2 nerve root. Moderate central canal narrowing is seen. L3-L4: The disc height is well-preserved. There is loss of disc signal seen. Moderate disc bulge is seen at this level. A superimposed central disc protrusion is seen. At least moderate facet hy pertrophy is seen. Moderate to severe bilateral neural foraminal narrowing can be seen, with associat ed compression upon the exiting nerve roots. Moderate central canal narrowing is seen. L4-L5: The disc height is well-preserved. There is loss of disc signal seen. Moderate disc bulge i s seen at this level. A superimposed central disc protrusion is seen. There is at least moderate rig ht-sided and moderate left-sided facet hypertrophy seen. Moderate to severe bilateral neural foramina l narrowing can be seen, with associated compression upon the exiting nerve roots. Moderate central canal narrowing is seen. L5-S1: Mild loss of disc height and disc signal are seen. At least moderate disc bulge is seen, whi ch is eccentric to the right side. Moderate facet hypertrophy is seen. Moderate to severe bilateral neural foraminal narrowing can be seen, with associated compression upon the exiting nerve roots. Mild central canal narrowing is seen. IMPRESSION: Multiple levels of lumbar spine degenerative change are seen. Presumed subacute Schmorl's node seen involving the posterior inferior endplate of L1. Several sites of significant neuroforaminal narrowing can be seen, with associated exiting nerve root compression. Mild dextroconvex scoliotic curvature is seen. Reviewed by: Harpreet Ramirez MD on 02/02/2022 5:07 PM [place] Approved by: Harpreet Ramirez MD on 02/02/2022 5:07 PM [facility] Station ID: [id number]
== END 2022-02-02 15:45 | disposition home or self-care (01) ==
LOC: DI 15:44
PROVIDERS: ATTEND Registered Nurse
DX: M47.26 Other spondylosis with radiculopathy, lumbar region (principal); M48.061 Spinal stenosis, lumbar region without neurogenic claudication; M47.27 Other spondylosis with radiculopathy, lumbosacral region; M51.37 Other intervertebral disc degeneration, lumbosacral region; M48.07 Spinal stenosis, lumbosacral region; M51.36 Other intervertebral disc degeneration, lumbar region; M41.9 Scoliosis, unspecified

== ENCOUNTER 2023-05-20 06:59 | Outpatient (CLI) | payer MEDICARE ==
--- NOTE | 2023-05-21 11:20 | Ultrasound Report ---
PROCEDURE: Abdomen Complete INDICATIONS: HEP C TECHNIQUE: Real-time scanning was performed of the abdominal and retroperitoneal organs, with image documentatio n. COMPARISON: None. FINDINGS: Liver: The liver measures 10.2 cm in length has a coarse echotexture and a nodular surface. Gallbladder: The gallbladder wall measures less than 1 mm in diameter. Sludge and stones are visualiz ed within the fundus. No pericholecystic fluid or sonographic Loera sign. Biliary ducts: Intrahepatic bile ducts are non-dilated. Extrahepatic bile duct caliber measures 4 m m. Normal is 6-7 mm or less in diameter, or 10 mm or less post-cholecystectomy. Pancreas: Increase is poorly characterized. Spleen: The spleen measures 14.0 cm in length. Kidneys: Kidneys are normal in size and echotexture. Right kidney measures 9.3 cm long; left kidney measures 12.4 cm long. No hydronephrosis or nephrolithiasis. No solid masses. No complex renal cys tic lesions which require follow-up. Aorta: Visualized aorta is normal in caliber at less than 3 cm. Iliacs: Proximal common iliac arteries are normal in caliber at less than 2.5 cm. IVC: Intrahepatic inferior vena cava is patent. Miscellaneous: No free abdominal fluid. IMPRESSION: 1. Small, coarse, nodular liver consistent with cirrhotic transformation. There is poor characterizat ion of the liver given patient body habitus. 2. Cholelithiasis. No findings to suggest choledocholithiasis or acute cholecystitis. 3. Mild splenomegaly likely secondary to portal hypertension. Reviewed by: Halle Abraham MD on 05/21/2023 11:19 AM PDT Approved by: Halle Abraham MD on 05/21/2023 11:19 AM PDT Station ID: [id number]
== END 2023-05-20 07:00 | disposition home or self-care (01) ==
LOC: DI 06:59
PROVIDERS: ATTEND Internal Medicine
DX: B18.2 Chronic viral hepatitis C (principal); K76.89 Other specified diseases of liver; K80.20 Calculus of gallbladder without cholecystitis without obstruction; R16.1 Splenomegaly, not elsewhere classified

== ENCOUNTER 2023-07-03 08:33 | Day surgery (SDC) | payer MEDICARE ==
[2023-07-03] MEDS: LACTATED RINGERS 1,000 ML IV ONE (09:57)
[2023-07-03] MEDS ORDERED: PROPOFOL 500 MG/50 ML 500 MG/50 ML VIAL ONE (12:13)
[2023-07-03] MEDS ORDERED: fentaNYL 100 MCG/2 ML VIAL ONE (12:13)
[2023-07-03] MEDS ORDERED: LIDOCAINE-PF 2% 10 ML AMP SUBQ ONE (12:13)
--- NOTE | 2023-07-03 12:25 | ANESTHESIA ---
Pre-Anesthesia VS, & Labs - Diagnosis elevated psa - Procedure prostate biopsy Vital Signs: Temp Pulse Resp BP Pulse Ox O2 Flow Rate 36.5 C 56 L 12 127/75 100 07/03/23 09:50 07/03/23 09:50 07/03/23 09:50 07/03/23 09:50 07/03/23 09:50 Height: 5 ft 7 in Weight (kg): 74 kg Body Mass Index: 25.5 BMI Classification: Overweight - NPO >8 hours Home Medications and Allergies Allergies/Adverse Reactions: Allergies Allergy/AdvReac Type Severity Reaction Status Date / Time No Known Drug Allergies Allergy Verified 06/01/21 07:34 Anes History & Medical History - Anesthetic History Anesthesia Complications: reports: No previous complications Family history of Anesthesia Complications: Denies Family history of Malignant Hyperthermia: Denies - Medical History Cardiovascular: reports: None Pulmonary: reports: Pneumonia, Other (hx of empyema) Gastrointestinal: reports: Colon polyps, Hepatitis, Other Urinary: reports: None, Frequency Neuro: reports: None Musculoskeletal: reports: Osteoarthritis, Other Endocrine/Autoimmune: reports: None Blood Disorders: reports: None Skin: reports: Eczema, Other Smoking Status: Former smoker Psychosocial: reports: Substance abuse, Alcohol, Cannabis (hx of ETOH abuse) - Surgical History Orthopedic: reports: Other Exam General: Alert, Oriented x3, Cooperative Dental: Poor dentition Mouth Openin Fingerbreadth Neck Mobility: Normal Mallampati classification: I Thyromental Distance: 4-6 cm Respiratory: Lungs clear Cardiovascular: Regular rate Plan Anesthesia Type: General, Total IV Consent for Procedure(s) Verified and Reviewed: Yes Code Status: Attempt Resuscitation ASA classification: 3-Severe systemic disease Is this case an emergency?: No
[2023-07-03] MEDS ORDERED: LIDOCAINE-MPF 1% 30 ML VIAL ONE (12:35)
[2023-07-03] MEDS ORDERED: ePHEDrine 50 MG/ML VIAL IVP ONE (12:40)
[2023-07-03] MEDS: LACTATED RINGERS 20 ML IV ONE (12:57)
[2023-07-03] MEDS: LIDOCAINE-MPF 1% 30 ML VIAL SUBQ ONE (12:59)
[2023-07-03 13:05] VITALS: O2SAT 99
--- NOTE | 2023-07-03 13:15 | Discharge Plan ---
Discharge Plan Problem Reviewed?: Yes Disposition: Home, Self Care Activity Restrictions: No Restrictions Shower Restrictions: No Driving Restrictions: No Instruction Topics: Biopsy Ultrasound Transrectal Additional Instructions or Follow Up instructions: You have a follow-up appointment on July 11 at 3:[address] Cadena. Please arrive 15 minutes early No Smoking: If you smoke, Please STOP! Call for help. Follow-up with: Mauricio Cadena MD [Provider Admit Priv/Credential] -
--- NOTE | 2023-07-03 13:16 | OPERATIVE REPORT ---
Operative Report - General Procedure Date: 07/03/23 Planned Procedure: Transrectal ultrasound-guided prostate biopsy Pre-Op Diagnosis: Elevated PSA Procedure Performed: Transrectal ultrasound-guided prostate biopsy Post Op Diagnosis: Elevated PSA - Procedure Note Primary Surgeon: Surinder Anesthesia Provider: FRANKLYN Trevino Anesthesia Technique: Moderate sedation Pathology: Routine prostate biopsy samples Estimated Blood Loss (mL): 0 Findings: 24.78cc prostate prostate calcifications Complications: none - Other Other Information/Narrative: After informed consent was obtained the patient was brought to the OR and laid in the supine position. The patient was then anesthetized per anesthesia protocols and placed in the left lower cubitus position with left side down. A timeout was performed reconfirming the patient, procedure and laterality. A transrectal ultrasound-guided probe was placed per rectum and his prostate was visualized. 5 cc 1% lidocaine was placed at the lateral aspect of the prostate bilaterally. The prostate volume was measured at 24.78 cc Using 18-gauge biopsy needle we obtained samples of the prostate from the right and left side, the lateral and medial aspects of the base, mid and apex for a total of 12 samples. These were sent for analysis separately. The probe was slowly removed and no bleeding was identified. The patient bro rated procedure well and was brought to the PACU without further incident. He will follow-up in a few weeks time for pathology discussion
[2023-07-03 13:25] VITALS: BP 129/55
--- NOTE | 2023-07-03 16:01 | ANESTHESIA POST OP EVALUATION ---
Anesthesia Post Eval - Post Anesthesia Eval Vitals: Last Vital Signs Temp 36.6 C 07/03/23 13:16 Pulse 77 07/03/23 13:16 Resp 15 07/03/23 13:16 BP 129/55 L 07/03/23 13:16 Pulse Ox 99 07/03/23 13:16 O2 Flow Rate CV Function Including HR & BP: Stable Pain Control: Satisfactory Nausea & Vomiting: Negative Mental Status: Baseline Respiratory Status: Airway Patent Hydration Status: Satisfactory Anesthesia Complications: None
== END 2023-07-03 08:34 | disposition home or self-care (01) ==
LOC: SDS 08:33
PROVIDERS: ATTEND Urology
PROC: 0VB07ZX Excision of Prostate, Via Natural or Artificial Opening, Diagnostic (ICD-10-PCS; principal; 2023-07-03 11:15)
DX: C61 Malignant neoplasm of prostate (principal); R35.0 Frequency of micturition; R39.15 Urgency of urination; Z87.891 Personal history of nicotine dependence
CPT/HCPCS: 55700; 76942; J7120

== ENCOUNTER 2023-08-29 09:45 | Outpatient (CLI) | payer MEDICARE | END 2023-08-29 10:00 | disposition home or self-care (01) | LOC: LAB.N 09:45 | PROVIDERS: ATTEND Physician Assistant Medical | DX: L02.414 Cutaneous abscess of left upper limb (principal) | CPT/HCPCS: 87070; 87205 ==